=== PATIENT | male | born 1965 | race African-American/Black ===

== ENCOUNTER 2017-04-09 22:29 | Inpatient (IN) | payer BC ==
[~2017-04-09] VITALS: Ht 193 cm; Wt 125.7 kg
[~2017-04-09 22:29] MED LIST: ASPCH81X PO; CARV12.52 PO; LISI20TA3 PO
[2017-04-09] MEDS ORDERED: XYLOCAINE 1%/SOD BICARB 20 ML VIAL INFIL ONE (22:45)
[2017-04-09] MEDS ORDERED: SODIUM CHLORIDE 0.9% 1000ML 1,000 ML IV STA ×2 (22:45)
[2017-04-09] MEDS ORDERED: ACETAMINOPHEN 500 MG TAB PO STA (23:00)
[2017-04-09] MEDS ORDERED: LISI40TA PO (23:08)
[2017-04-09] MEDS ORDERED: AMLO-110 PO (23:08)
[2017-04-09] MEDS ORDERED: HYDR25TA4 PO (23:08)
[2017-04-09 23:50] LABS: BASO % 0.3 %; BASO ABS # 0.04 K/uL (0-0.2); COMPLETE YES; EOS % 0.3 %; HEMATOCRIT 38.4 % (42-52); IG% 0.3 %; LYMPH % 5.9 %; LYMPH ABS # 0.71 K/uL (1.2-3.4); MEAN CELL VOLUME 84.2 fL (80-100); MEAN CORPUSCULAR HEMOGLOBIN 28.5 pg (25-34); MEAN CORPUSCULAR HGB CONC 33.9 g/dl (32-36); MEAN PLATELET VOLUME 9.5 fL (7.4-10.4); MONO % 9.8 %; NEUT % 83.4 %; PLATELET COUNT 332 K/uL (130-400); RED BLOOD COUNT 4.56 M/uL (4.7-6.1); WHITE BLOOD COUNT 11.96 K/uL (4.8-10.8)
[2017-04-10 00:06] LABS: INR 1.1 (0.9-1.1); PARTIAL THROMBOPLASTIN RATIO 1.4; PROTHROMBIN TIME (PATIENT) 12.1 SECONDS (9.0-12.0)
[2017-04-10 00:17] LABS: ALT/SGPT 67 U/L (12-78); BLOOD UREA NITROGEN 19 mg/dl (7-18); BUN/CREATININE RATIO 12.4 (10-20); CARBON DIOXIDE 30 mmol/L (21-32); CHLORIDE 98 mmol/L (98-107); GLUCOSE 141 mg/dl (70-99); POTASSIUM 3.8 mmol/L (3.5-5.1); SODIUM 135 mmol/L (136-145); URIC ACID 8.2 mg/dl (2.6-7.2)
[2017-04-10 00:24] LABS: ALB/GLOB RATIO 0.6 (0.9-2); ALKALINE PHOSPHATASE 121 U/L (45-117); AST/SGOT 39 U/L (15-37)
[2017-04-10 00:34] LABS: LYME DISEASE AB IGM NEG (NEG)
[2017-04-10 00:35] LABS: LYME DISEASE AB IGG NEG (NEG)
[2017-04-10] MEDS ORDERED: CEFTRIAXONE SOD INJ 1000 MG in DEXTROSE 5% 50ML IV ONE (02:15)
[2017-04-10] MEDS ORDERED: VANCOMYCIN INJ 2,800 MG in SODIUM CHLORIDE 0.9% 500ML 500 ML IV ONE (02:15)
[2017-04-10] MEDS ORDERED: CEFTRIAXONE SOD INJ 1 GM ADDVIAL ONE (02:29)
[2017-04-10 03:30] VITALS: BP 138/73; PULSE 80; TEMP 37.1; O2SAT 95; Ht 193 cm; Wt 125.7 kg
[2017-04-10] MEDS ORDERED: NSS + 20MEQ KCL 1000ML 1,000 ML IV ONE (03:30)
[2017-04-10] MEDS ORDERED: POTASSIUM CHLORIDE 10 MEQ TABCR PO STA (03:36)
--- NOTE | 2017-04-10 03:54 | History and Physical ---
History & Physical Date & Time of Service: Apr 10, 2017 at 03:54 Chief Complaint: R knee pain Primary Care Physician: Sarthak Salazar D.O. History of Present Illness Source: patient, clinic records Few days history of achy bilateral lower extremity pain different from gout more pain on the right knee than usual especially with walking. Patient had fever chills no trauma denies previous episodes. No chest pain no shortness of breath. At the emergency room patient received Vanco and ceftriaxone for possible septic arthritis. 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) Multi-Drug Resistant Organisms History of MDRO: No Allergies Coded Allergies: No Known Allergies (Unverified , 04/09/17) Home Medications Scheduled Amlodipine (Norvasc), 5 MG PO DAILY Aspirin (Aspirin Chewable), 81 MG PO QAM Carvedilol (Coreg), 12.5 MG PO BID Hydrochlorothiazide (Hctz), 25 MG PO DAILY Lisinopril (Zestril), 40 MG PO DAILY Review of Systems as per HPI, all other ROS negative Physical Exam Vital Signs Date Time Temp Pulse Resp B/P (MAP) Pulse Ox O2 Delivery O2 Flow Rate FiO2 04/10/17 02:30 82 04/10/17 01:59 82 18 131/67 98 Room Air 04/10/17 00:26 37.5 90 20 151/82 96 Room Air 04/09/17 23:02 98 Room Air 04/09/17 22:38 102 04/09/17 22:33 38.0 103 16 154/83 100 Room Air General Appearance: no apparent distress, + obese, + pertinent finding ( slightly anxious) Eyes: normal inspection ENT: normal ENT inspection Neck: supple, no JVD Respiratory/Chest: lungs clear Cardiovascular: regular rate, rhythm Abdomen/GI: soft Extremities/Musculoskelatal: + pertinent finding (dressing right knee) Skin: normal color Diagnostics Laboratory Results Results Past 24 Hours Test 04/09/17 23:34 04/09/17 23:45 04/09/17 23:49 Range/Units White Blood Count 11.96 4.8-10.8 K/uL Red Blood Count 4.56 4.7-6.1 M/uL Hemoglobin 13.0 14.0-18.0 g/dL Hematocrit 38.4 42-52 % Mean Corpuscular Volume 84.2 80-100 fL Mean Corpuscular Hemoglobin 28.5 25-34 pg Mean Corpuscular Hemoglobin Concent 33.9 32-36 g/dl Platelet Count 332 130-400 K/uL Mean Platelet Volume 9.5 7.4-10.4 fL Neutrophils (%) (Auto) 83.4 % Lymphocytes (%) (Auto) 5.9 % Monocytes (%) (Auto) 9.8 % Eosinophils (%) (Auto) 0.3 % Basophils (%) (Auto) 0.3 % Neutrophils # (Auto) 9.97 1.4-6.5 K/uL Lymphocytes # (Auto) 0.71 1.2-3.4 K/uL Monocytes # (Auto) 1.17 0.11-0.59 K/uL Eosinophils # (Auto) 0.04 0-0.5 K/uL Basophils # (Auto) 0.04 0-0.2 K/uL RDW Standard Deviation 42.8 36.4-46.3 fL RDW Coefficient of Variation 13.8 11.5-14.5 % Immature Granulocyte % (Auto) 0.3 % Immature Granulocyte # (Auto) 0.03 0.00-0.02 K/uL Erythrocyte Sedimentation Rate 87 0-14 mm/hr Prothrombin Time 12.1 9.0-12.0 SECONDS Prothromb Time International Ratio 1.1 0.9-1.1 Activated Partial Thromboplast Time 35.5 21.0-31.0 SECONDS Partial Thromboplastin Ratio 1.4 Sodium Level 135 136-145 mmol/L Potassium Level 3.8 3.5-5.1 mmol/L Chloride Level 98 98-107 mmol/L Carbon Dioxide Level 30 21-32 mmol/L Anion Gap 7.0 3-11 mmol/L Blood Urea Nitrogen 19 7-18 mg/dl Creatinine 1.50 0.60-1.40 mg/dl Est Creatinine Clear Calc Drug Dose 83.4 ml/min Estimated GFR () 61.2 Estimated GFR (Non- 52.8 BUN/Creatinine Ratio 12.4 10-20 Random Glucose 141 70-99 mg/dl Uric Acid 8.2 2.6-7.2 mg/dl Calcium Level 9.4 8.5-10.1 mg/dl Total Bilirubin 1.5 0.2-1 mg/dl Aspartate Amino Transf (AST/SGOT) 39 15-37 U/L Alanine Aminotransferase (ALT/SGPT) 67 12-78 U/L Alkaline Phosphatase 121 45-117 U/L Troponin I < 0.015 0-0.045 ng/ml C-Reactive Protein 25.00 0-0.29 mg/dl Total Protein 7.9 6.4-8.2 gm/dl Albumin 3.0 3.4-5.0 gm/dl Globulin 4.9 2.5-4.0 gm/dl Albumin/Globulin Ratio 0.6 0.9-2 Lyme Disease IgG Antibody NEG NEG Lyme Disease IgM Antibody NEG NEG Bedside Troponin I < 0.030 0-0.045 ng/ml Bedside Lactic Acid Venous 1.02 0.90-1.70 mmol/L Microbiology Results 04/09/17 Blood Culture, Received Pending 04/09/17 Blood Culture, Received Pending 04/10/17 Gram Stain - Preliminary, Resulted 04/10/17 Bacterial Culture, Resulted Pending Diagnostic Radiology Right knee x-ray as per my interpretation arthritis small effusion CXR normal Impression Assessment and Plan AP Septic arthritis, R knee History of past surgery LE pain ro dvt History gout as per patient, no previous knee involevement as per px Chronic systolic heart failure secondary to non-ischemic cardiomyopathy EF 55% TTE 2015 Compensated Hypertension slightly elevated ARF GMF CS, Vancomycin Orthopedics consult right knee pain and swelling ER provider already in touch with Dr. Hoover Baseline UA, Monitor creatinine response to IV fluids Hold COCO inhibitor, home diuretics until creatinine at baseline Lower extremity Dopplers rule out DVT DVT prophylaxis Heparin SQ Full code VTE Prophylaxis VTE Risk Assessment Done? Y/N: Yes Risk Level: Moderate
[2017-04-10] MEDS ORDERED: HYDROmorphone INJ 0.5 MG/0.5 ML SYR IV PRN (04:00)
[2017-04-10] MEDS ORDERED: ONDANSETRON INJ 2 MG/ML 2 ML VIAL IV PRN (04:00)
[2017-04-10] MEDS ORDERED: TRAMADOL HCL 50 MG TAB PO PRN (04:00)
[2017-04-10] MEDS ORDERED: ACETAMINOPHEN 325 MG TAB PO PRN (04:00)
[2017-04-10] MEDS ORDERED: LORAZEPAM 2 MG/ML 1 ML VIAL IV PRN (04:00)
[2017-04-10 04:25] LABS: CALCIUM 9.8 mg/dl (8.5-10.1)
[2017-04-10 04:40] LABS: MAGNESIUM 2.8 mg/dl (1.8-2.4)
--- NOTE | 2017-04-10 04:41 | EMERGENCY ROOM VISIT NOTE ---
History First contact with patient: 22:38 Chief Complaint: OTHER COMPLAINT Stated Complaint: SEPTIC ARTHRITIS History of Present Illness The patient is a 52 year old male who presents to the Emergency Room with complaints of fever with body aches and right knee pain and swelling. Fever started today. Patient states for the past week the knee has been swollen and very painful with ambulation. He has a history of gout but no history in the knee. Hes had tick bites before. Knee pain 8 out of 10 worse with movement and better with rest. Patient denies chest pain, cough, congestion, sore throat , abdominal pain, vomiting, diarrhea, urinary symptoms. He does not check his blood sugars. No IV drug abuse. Review of Systems See HPI for pertinent positives & negatives. A total of 10 systems reviewed and were otherwise negative. Past Medical/Surgical History Medical Problems: (1) Septic arthritis Diabetes, gout, arrhythmia, knee surgery Social History Smoking Status: Never Smoker Alcohol Use: none Drug Use: none Occupation Status: employed Current/Historical Medications Scheduled Amlodipine (Norvasc), 5 MG PO DAILY Aspirin (Aspirin Chewable), 81 MG PO QAM Carvedilol (Coreg), 12.5 MG PO BID Hydrochlorothiazide (Hctz), 25 MG PO DAILY Lisinopril (Zestril), 40 MG PO DAILY Allergies Coded Allergies: No Known Allergies (Unverified , 04/09/17) Physical Exam Vital Signs Date Time Temp Pulse Resp B/P (MAP) Pulse Ox O2 Delivery O2 Flow Rate FiO2 04/10/17 01:59 82 18 131/67 98 Room Air 04/10/17 00:26 37.5 90 20 151/82 96 Room Air 04/09/17 23:02 98 Room Air 04/09/17 22:38 102 04/09/17 22:33 38.0 103 16 154/83 100 Room Air Physical Exam VITALS: Vitals are noted on the nurse's note and reviewed by myself. Vital signs febrile tachycardic. GENERAL: Pleasant male who appears uncomfortable, nondiaphoretic, well- developed well-nourished. SKIN: The skin was without rashes, erythema, edema, or bruising. There is no tenting of the skin. Capillary reflex less than 2 seconds. HEAD: Normocephalic atraumatic. EARS: External auditory canals clear, tympanic membranes pearly clemente without erythema or effusion bilaterally. EYES: Pupils equal round and reactive to light and accommodation. Conjunctivae without injection, sclerae without icterus. Extraocular movements intact. NOSE: Patent, turbinates without inflammation or discharge. No sinus tenderness. MOUTH: Mucous membranes moist. Pharynx without erythema or exudate. Uvula midline. Airway patent. Tongue does not deviate. NECK: Supple without nuchal rigidity. No lymphadenopathy. No thyromegaly. Cervical spine is nontender. No JVD. HEART: Tachycardia, Regular rate and rhythm without murmurs gallops or rubs. LUNGS: Clear to auscultation bilaterally without wheezes, rales or rhonchi. No dullness to percussion. No retractions or accessory muscle use. ABDOMEN: Positive bowel sounds x 4. Normal tympanic percussion. Soft, nontender, without masses or organomegaly. Mallory sign negative. No guarding or rebound tenderness. MUSCULOSKELETAL: No muscle atrophy, erythema, or edema noted. Right knee is edematous and warm to touch with increased pain with range of motion with no lymphangitis. Right hip and ankle nontender to palpation. Pedal pulses +2 equal present bilaterally. NEURO: Patient was alert and oriented to person place and time. Normal sensation to light and sharp touch. No focal neurological deficits. Medical Decision & Procedures Laboratory Results Test 04/09/17 23:34 04/09/17 23:45 04/09/17 23:49 RDW Standard Deviation 42.8 fL (36.4-46.3) RDW Coefficient of Variation 13.8 % (11.5-14.5) White Blood Count 11.96 K/uL (4.8-10.8) Red Blood Count 4.56 M/uL (4.7-6.1) Hemoglobin 13.0 g/dL (14.0-18.0) Hematocrit 38.4 % (42-52) Mean Corpuscular Volume 84.2 fL (80-100) Mean Corpuscular Hemoglobin 28.5 pg (25-34) Mean Corpuscular Hemoglobin Concent 33.9 g/dl (32-36) Platelet Count 332 K/uL (130-400) Mean Platelet Volume 9.5 fL (7.4-10.4) Neutrophils (%) (Auto) 83.4 % Lymphocytes (%) (Auto) 5.9 % Monocytes (%) (Auto) 9.8 % Eosinophils (%) (Auto) 0.3 % Basophils (%) (Auto) 0.3 % Neutrophils # (Auto) 9.97 K/uL (1.4-6.5) Lymphocytes # (Auto) 0.71 K/uL (1.2-3.4) Monocytes # (Auto) 1.17 K/uL (0.11-0.59) Eosinophils # (Auto) 0.04 K/uL (0-0.5) Basophils # (Auto) 0.04 K/uL (0-0.2) Immature Granulocyte % (Auto) 0.3 % Immature Granulocyte # (Auto) 0.03 K/uL (0.00-0.02) Erythrocyte Sedimentation Rate 87 mm/hr (0-14) Prothrombin Time 12.1 SECONDS (9.0-12.0) Prothromb Time International Ratio 1.1 (0.9-1.1) Activated Partial Thromboplast Time 35.5 SECONDS (21.0-31.0) Partial Thromboplastin Ratio 1.4 Est Creatinine Clear Calc Drug Dose 83.4 ml/min Uric Acid 8.2 mg/dl (2.6-7.2) Magnesium Level 2.8 mg/dl (1.8-2.4) Total Creatine Kinase 207 U/L (39-308) Troponin I < 0.015 ng/ml (0-0.045) C-Reactive Protein 25.00 mg/dl (0-0.29) Lyme Disease IgG Antibody NEG (NEG) Lyme Disease IgM Antibody NEG (NEG) Bedside Troponin I < 0.030 ng/ml (0-0.045) Bedside Lactic Acid Venous 1.02 mmol/L (0.90-1.70) Medications Administered Medications (Trade) Dose Ordered Sig/Jesus Route Start Time Stop Time Status Last Admin Dose Admin Sodium Chloride 1,000 ml @ 999 mls/hr Q1H1M STAT IV 04/09/17 22:45 04/09/17 23:45 DC 04/09/17 22:45 999 MLS/HR Sodium Chloride 1,000 ml @ 125 mls/hr Q8H STAT IV 04/09/17 22:45 04/10/17 06:44 04/10/17 01:07 125 MLS/HR Acetaminophen (Tylenol Tab) 1,000 mg NOW STAT PO 04/09/17 23:00 04/09/17 23:02 DC 04/09/17 23:17 1,000 MG Procedure Joint aspiration Indication: Rule out septic joint Location: Knee Verbal consent was obtained after the risks and benefits were explained, including but not limited to bleeding, scarring, infection, pain, and bone/joint /nerve damage. At this time, the risks of the procedure are less than the risks of NOT performing the procedure. A time out was taken and the correct patient and site identified. The skin was prepped with betadine and a sterile field set. The wound was anesthetized with 2 ml of 1% lidocaine without epinephrine. The right knee was entered with a 18-gauge needle superior and lateral and milky thick material was withdrawn that was minimal. I was unable to withdraw any other fluid. This is sent for analysis. There is cleansed and dressed with bandage and Yuan wrap. Detailed wound care instructions and signs and symptoms of worsening infection reviewed with the patient. No complications and the patient tolerated the procedure well. ED Course Prior records/ancillary studies reviewed. Triage Nursing notes reviewed. The patient's history was concerning for fever. Differential diagnosis: Etiologies such as viral syndrome, septic joint, gout, Lyme's, otitis, pharyngitis, pneumonia, influenza, meningitis, urinary tract infection, sepsis, bacteremia, as well as others were entertained. Physical examination: Patient was alert febrile and tachycardic ER treatment provided: Rocephin, vancomycin On reassessment the patient felt better. Diagnostics interpreted by me: ECG: Normal sinus, normal intervals, T wave inversions in the lateral leads, rate of 97. Impression normal sinus rhythm with T-wave inversions in the lateral leads interpreted by myself The labs revealed leukocytosis. Negative lactic acid. Elevated sedimentation rate, elevated ESR Lab was only able to do a Gram stain and did this before asked me what I would like since there is minimal amount of fluid for analysis. This showed very few WBCs and no organisms. Imaging studies: Knee x-ray with joint effusion without fracture per my interpretation Chest x-ray with no acute consolidation, pneumothorax or free air per my interpretation Consultation: A consultation was placed with Dr. Hoover and is unsure exactly if this is gout or anything else and recommends medical admission if my concern is for infection. I then consulted Dr. Glynn and will evaluate the patient for possible admission. The case was discussed and diagnostics were reviewed. The patient was evaluated in the ER for further treatment. Exam and history seem consistent with right knee joint effusion with concerns for gout versus septic joint. I was unable to get enough fluid out of the knee for analysis besides the Gram stain that was done by lab without asking me first of what test to run. Patient does have a leukocytosis and elevated sedimentation rate and CRP earache. He had negative lactic acid. Gram stain showed very few WBCs and no organisms. Uric acid was elevated. I did speak to orthopedics, Dr. Hoover, and is unsure if this is gout or anything else. He recommends medical admission and he will evaluate the person tomorrow for possible joint aspiration and antibiotics. I spoke to medicine, Dr. Thompson and will evaluate the patient for admission. Patient is agreeable to admission. Blood cultures are pending. By the evaluation outlined above emergent etiologies such as otitis, pharyngitis, pneumonia, meningitis, urinary tract infection, sepsis, as well as others were deemed relatively unlikely. The pt informed about the findings as listed above. All questions were answered and pleased with the treatment. Case reviewed with my attending. Medical Decision As above Impression Primary Impression: Effusion, right knee Additional Impressions: Anemia Fever Departure Information Dispostion Still a Patient Condition FAIR Referrals Sarthak Salazar D.O. (PCP) Forms WORK / SCHOOL INSTRUCTIONS, HOME CARE DOCUMENTATION FORM, IMPORTANT VISIT INFORMATION Patient Instructions My [facility] Problem Qualifiers
[2017-04-10] MEDS ORDERED: VANCOMYCIN CONSULT ACTIVE PRN (04:45)
[2017-04-10] MEDS: HEPARIN SOD 5000 UNIT/0.5 ML CARP SQ SCH ×3 (05:13→22:02)
--- NOTE | 2017-04-10 05:37 | Pharmacy Progress Note ---
Pharmacy Abx Initial Consult Date of Service Apr 10, 2017. Pharmacy Dosing Scope Date of Consult: 04/10/17 Consultation requested by: Dr. Thompson Pharmacy is consulted to initiate VANC-IV dosing therapy, order appropriate labs and adjust drug dose/frequency. Subjective The patient is a 52 year old male admitted on Apr 10, 2017 at 02:00. Ordered Vanc-IV for septic arthritis. Cultures pending. Objective Height (Feet): 6 Height (Inches): 4.00 Weight (Kilograms): 125.700 Vital Signs (Past 12Hrs) Vital Signs Past 12 Hours Date Time Temp Pulse Resp B/P (MAP) Pulse Ox O2 Delivery O2 Flow Rate FiO2 04/10/17 03:30 37.1 80 18 138/73 95 Room Air 04/10/17 02:30 82 04/10/17 01:59 82 18 131/67 98 Room Air 04/10/17 00:26 37.5 90 20 151/82 96 Room Air 04/09/17 23:02 98 Room Air 04/09/17 22:38 102 04/09/17 22:33 38.0 103 16 154/83 100 Room Air Lab Results (24Hrs) Laboratory Tests (24 Hours) Test 04/09/17 23:34 04/10/17 05:14 C-Reactive Protein 25.00 mg/dl (0-0.29) H Erythrocyte Sedimentation Rate 87 mm/hr (0-14) H White Blood Count 11.96 K/uL (4.8-10.8) H Red Blood Count 4.56 M/uL (4.7-6.1) L Hemoglobin 13.0 g/dL (14.0-18.0) L Hematocrit 38.4 % (42-52) L Mean Corpuscular Volume 84.2 fL (80-100) Mean Corpuscular Hemoglobin 28.5 pg (25-34) Mean Corpuscular Hemoglobin Concent 33.9 g/dl (32-36) Platelet Count 332 K/uL (130-400) Mean Platelet Volume 9.5 fL (7.4-10.4) Neutrophils (%) (Auto) 83.4 % Lymphocytes (%) (Auto) 5.9 % Monocytes (%) (Auto) 9.8 % Eosinophils (%) (Auto) 0.3 % Basophils (%) (Auto) 0.3 % Neutrophils # (Auto) 9.97 K/uL (1.4-6.5) H Lymphocytes # (Auto) 0.71 K/uL (1.2-3.4) L Monocytes # (Auto) 1.17 K/uL (0.11-0.59) H Eosinophils # (Auto) 0.04 K/uL (0-0.5) Basophils # (Auto) 0.04 K/uL (0-0.2) Total Creatine Kinase 207 U/L (39-308) Micro Results Date/Time Source Procedure Growth Status 04/09/17 23:42 Blood Blood Culture Pending Received 04/09/17 23:34 Blood Blood Culture Pending Received 04/10/17 00:10 Joint Fluid/Space (Synovial) Knee Right Gram Stain - Preliminary Resulted 04/10/17 00:10 Joint Fluid/Space (Synovial) Knee Right Bacterial Culture Pending Resulted Assessment & Plan Plan: Will monitor renal function closely and make adjustments as needed. Vancomycin IV: * Estimated p'kinetics: Vd~0.7L/kg, Ke~0.0733hr-1, t1/2~9.5 hours * Loading dose: VANC 2800mg (22 mg/kg) * Maintenance dose: VANC 1900mg IV (15 mg/kg) every 12 hours * Goal trough level: 15 to 20 mcg/mL * VANC Trough @ Css prior to 04/12/17 0000 dose Pharmacy will continue to follow and will adjust dose/frequency as necessary. Thank you.
[2017-04-10 05:44] LABS: HEMATOCRIT 33.7 % (42-52); MEAN CELL VOLUME 85.3 fL (80-100); MEAN CORPUSCULAR HEMOGLOBIN 28.1 pg (25-34); MEAN CORPUSCULAR HGB CONC 32.9 g/dl (32-36); MEAN PLATELET VOLUME 9.5 fL (7.4-10.4); PLATELET COUNT 286 K/uL (130-400); RED BLOOD COUNT 3.95 M/uL (4.7-6.1); WHITE BLOOD COUNT 10.72 K/uL (4.8-10.8)
[2017-04-10 06:14] LABS: BUN/CREATININE RATIO 15.7 (10-20); CREATININE 1.1 mg/dl (0.60-1.40); POTASSIUM 3.5 mmol/L (3.5-5.1)
[2017-04-10 06:18] LABS: ALB/GLOB RATIO 0.7 (0.9-2)
--- NOTE | 2017-04-10 06:34 | DIAGNOSTIC IMAGING REPORT ---
RIGHT KNEE 3 VIEWS CLINICAL HISTORY: right pain/swelling Right pain COMPARISON: None. DISCUSSION: Moderate generalized degenerative change all major joint compartments. Very small joint effusion. No evidence for fracture or dislocation. IMPRESSION: Generalized degenerative change. Small joint effusion. Electronically signed by: Rubio Maria M.D. 04/10/2017 6:33 AM Dictated Date/Time: 04/10/2017 6:32 AM
--- NOTE | 2017-04-10 06:49 | DIAGNOSTIC IMAGING REPORT ---
CHEST ONE VIEW PORTABLE CLINICAL HISTORY: Sepsis dyspnea COMPARISON STUDY: No previous studies for comparison. FINDINGS: The bones soft tissues and hemidiaphragms are normal. The cardiomediastinal silhouette is normal. The lungs are clear. The pulmonary vasculature is normal. IMPRESSION: Negative chest. Electronically signed by: Rubio Maria M.D. 04/10/2017 6:47 AM Dictated Date/Time: 04/10/2017 6:46 AM
[2017-04-10 06:50] LABS: CALCIUM 9.1 mg/dl (8.5-10.1)
[2017-04-10 07:35] VITALS: BP 102/62; PULSE 72; TEMP 37; O2SAT 96
[2017-04-10] MEDS ORDERED: LISINOPRIL 40 MG TAB PO SCH (08:00)
[2017-04-10] MEDS ORDERED: HYDROCHLOROTHIAZIDE 25 MG TAB PO SCH (08:00)
[2017-04-10] MEDS: AMLODIPINE BESYLATE 5 MG TAB PO SCH (08:34)
[2017-04-10] MEDS: ASPIRIN 81 MG ECTAB PO SCH (08:34)
[2017-04-10] MEDS: CARVEDILOL 12.5 MG TAB PO SCH ×2 (08:34→22:00)
[2017-04-10 08:35] VITALS: BP 105/59; PULSE 74
--- NOTE | 2017-04-10 09:30 | DIAGNOSTIC IMAGING REPORT ---
BILATERAL LOWER EXTREMITY VENOUS DOPPLER HISTORY: leg cramps COMPARISON STUDY: None. FINDINGS: There is normal compressibility, flow, and augmentation within the bilateral lower extremity deep venous systems. IMPRESSION: No DVT within the right or left lower extremity. Electronically signed by: Chad Crooks M.D. 04/10/2017 9:29 AM Dictated Date/Time: 04/10/2017 9:28 AM
[2017-04-10] MEDS: VANCOMYCIN INJ 1,900 MG in SODIUM CHLORIDE 0.9% 500ML 500 ML IV SCH (12:35)
[2017-04-10] MEDS ORDERED: ETHYL CHLORIDE AER SPR 100 ML CAN EXT ONE (13:00)
[2017-04-10 15:05] VITALS: BP 151/78; PULSE 79; TEMP 37; O2SAT 98
--- NOTE | 2017-04-10 16:14 | Medical Consult ---
Consultation Date of Consultation: Apr 10, 2017. Attending Physician: Jason Miller M.D. Reason for Consultation: Painful Right Knee - r/o septic knee History of Present Illness 52-year-old black male who was admitted by medicine service for right knee pain and rule out septic right knee. Patient states that he's been having this pain in his knee for some time now and has gradually worsened he also states that initially a week or so ago he feels that he had injured his ankle somewhat on the right side and felt like it was a sprain. He states that several years ago he had surgery on his quadriceps tendon of the right knee to reattach it to the patella. He was also told that he would likely need to have a knee replacement down the road at some point in time. The patient states that over the last week he began having some nausea and achiness. He developed a fever on the day that he came in. He had not been taking his temperature over the last week but states he felt hot. The pain in his knee continued to worsen and he states that prior to coming into the emergency room he was attempting to get to the restroom I believe, and between his ankle discomfort and his knee he was unable to do so. He was seen in the emergency room at that time an aspiration was performed of the right knee and a small amount of fluid was removed and sent for culture. The patient denies any overt injury of the recent past. Past Medical/Surgical History Medical Problems: (1) Anemia Status: Acute (2) Effusion, right knee Status: Acute (3) Fever Status: Acute H/O Gout, Chronic Systolic Heart Failure, Htn, ARF H/O Quad Tendon Rupture with repair of the right knee Social History Smoking Status: Unknown if Ever Smoked Drug Use: none Occupation Status: employed Allergies Coded Allergies: No Known Allergies (Unverified , 04/09/17) Home Medications Amlodipine (Norvasc), 5 MG PO DAILY Aspirin (Aspirin Chewable), 81 MG PO QAM Carvedilol (Coreg), 12.5 MG PO BID Hydrochlorothiazide (Hctz), 25 MG PO DAILY Lisinopril (Zestril), 40 MG PO DAILY Current Inpatient Medications Current Inpatient Medications Medications (Trade) Dose Ordered Sig/Jesus Route Start Time Stop Time Status Last Admin Dose Admin Potassium Chloride/Sodium Chloride 1,000 ml @ 75 mls/hr [id number] ONCE IV 04/10/17 03:30 04/10/17 16:49 04/10/17 05:04 75 MLS/HR Heparin Sodium (Porcine) (Heparin Sq 5000 Unit/0.5ml) 5,000 unit Q8 SQ 04/10/17 06:00 05/10/17 05:59 04/10/17 13:46 5,000 UNIT Aspirin (Ecotrin Tab) 81 mg QAM PO 04/10/17 08:00 05/10/17 07:59 04/10/17 08:34 81 MG Amlodipine Besylate (Norvasc Tab) 5 mg DAILY PO 04/10/17 08:00 05/10/17 07:59 04/10/17 08:34 5 MG Carvedilol (Coreg Tab) 12.5 mg BID PO 04/10/17 08:00 05/10/17 07:59 04/10/17 08:34 12.5 MG Acetaminophen (Tylenol Tab) 325 mg Q6H PRN PO 04/10/17 04:00 05/10/17 03:59 Ondansetron HCl (Zofran Inj) 4 mg Q4H PRN IV 04/10/17 04:00 05/10/17 03:59 Hydromorphone HCl (Dilaudid Inj) 0.5 mg Q3H PRN IV 04/10/17 04:00 04/24/17 03:59 Lorazepam (Ativan Inj) 0.5 mg Q4 PRN IV 04/10/17 04:00 05/10/17 03:59 Tramadol HCl (Ultram Tab) pain not relie... Q4 PRN PO 04/10/17 04:00 05/10/17 03:59 Vancomycin HCl (Consult) 1 ea UD PRN N/A 04/10/17 04:45 05/10/17 04:44 Vancomycin HCl 1900 mg/Sodium Chloride 538 ml @ 200 mls/hr Q12H IV 04/10/17 12:00 05/22/17 11:59 04/10/17 12:35 200 MLS/HR Review of Systems As per admitting H&P Physical Exam Date Time Temp Pulse Resp B/P (MAP) Pulse Ox O2 Delivery O2 Flow Rate FiO2 04/10/17 15:05 37.0 79 18 151/78 (102) 98 Room Air 04/10/17 08:35 74 105/59 (74) 04/10/17 08:00 Room Air 04/10/17 07:35 37.0 72 18 102/62 (75) 96 Room Air 04/10/17 03:30 37.1 80 18 138/73 95 Room Air 04/10/17 02:30 82 04/10/17 01:59 82 18 131/67 98 Room Air 04/10/17 00:26 37.5 90 20 151/82 96 Room Air 04/09/17 23:02 98 Room Air 04/09/17 22:38 102 04/09/17 22:33 38.0 103 16 154/83 100 Room Air Examination focusing on the right lower extremity. When walking into the room the patient is lying in bed is awake and alert and oriented 3. He appears comfortable at this time. Whenever he moves the right leg somewhat he does have some discomfort. On examining the right knee he has what appears to be a noted effusion of the right knee and upon palpation feels like possible fluctuance around the patella and the superior aspect. The knee is not overtly hot compared to the left. On palpation most of his pain is over the superior pole of the patella and the quadriceps tendon. I cannot ascertain if there is a discrepancy in the tendon. The patient is able to fully extend the knee at this time. Taking the knee through passive range of motion, I can get him to flex the knee and extend the knee flexing to approximately 65 without much in the way of discomfort in the knee joint itself. The patient is currently unable to do a straight leg raise with the right lower extremity. However with some help from myself, the patient is able to do a straight leg raise however is not able to hold a straight leg raise once I stop helping him. During this time he does have pain in the area of the superior pole of the patella but not so much in the knee joint itself. Collateral ligaments feel stable at this time. He does have some mild pain on the both medial and lateral aspect of the knees when trying to ascertain collateral stability. It is noted that he is firing his quadriceps muscles during attempt to do straight leg raise. He has some edema going down the lower extremity to the ankle compared to the left distal pulses are equal bilaterally. Patient states he does have some slight decreased sensation in both his feet which apparently has been something he is used to he does have good dorsiflexion plantar flexion of the right ankle but does have some discomfort in the ankle during range of motion. Palpation of the Achilles tendon elicits no pain. No other gross motor or sensory deficits are noted this time. Laboratory Results Last 24 Hours Test 04/09/17 23:34 04/09/17 23:45 04/09/17 23:49 04/10/17 05:14 White Blood Count 11.96 K/uL 10.72 K/uL Red Blood Count 4.56 M/uL 3.95 M/uL Hemoglobin 13.0 g/dL 11.1 g/dL Hematocrit 38.4 % 33.7 % Mean Corpuscular Volume 84.2 fL 85.3 fL Mean Corpuscular Hemoglobin 28.5 pg 28.1 pg Mean Corpuscular Hemoglobin Concent 33.9 g/dl 32.9 g/dl Platelet Count 332 K/uL 286 K/uL Mean Platelet Volume 9.5 fL 9.5 fL Neutrophils (%) (Auto) 83.4 % Lymphocytes (%) (Auto) 5.9 % Monocytes (%) (Auto) 9.8 % Eosinophils (%) (Auto) 0.3 % Basophils (%) (Auto) 0.3 % Neutrophils # (Auto) 9.97 K/uL Lymphocytes # (Auto) 0.71 K/uL Monocytes # (Auto) 1.17 K/uL Eosinophils # (Auto) 0.04 K/uL Basophils # (Auto) 0.04 K/uL RDW Standard Deviation 42.8 fL 42.8 fL RDW Coefficient of Variation 13.8 % 13.7 % Immature Granulocyte % (Auto) 0.3 % Immature Granulocyte # (Auto) 0.03 K/uL Erythrocyte Sedimentation Rate 87 mm/hr Prothrombin Time 12.1 SECONDS Prothromb Time International Ratio 1.1 Activated Partial Thromboplast Time 35.5 SECONDS Partial Thromboplastin Ratio 1.4 Sodium Level 135 mmol/L 139 mmol/L Potassium Level 3.8 mmol/L 3.5 mmol/L Chloride Level 98 mmol/L 104 mmol/L Carbon Dioxide Level 30 mmol/L 26 mmol/L Anion Gap 7.0 mmol/L 9.0 mmol/L Blood Urea Nitrogen 19 mg/dl 17 mg/dl Creatinine 1.50 mg/dl 1.10 mg/dl Est Creatinine Clear Calc Drug Dose 83.4 ml/min 113.7 ml/min Estimated GFR () 61.2 89.0 Estimated GFR (Non- 52.8 76.8 BUN/Creatinine Ratio 12.4 15.7 Random Glucose 141 mg/dl 124 mg/dl Uric Acid 8.2 mg/dl Calcium Level 9.8 mg/dl 9.1 mg/dl Magnesium Level 2.8 mg/dl Total Bilirubin 1.5 mg/dl 0.9 mg/dl Aspartate Amino Transf (AST/SGOT) 39 U/L 30 U/L Alanine Aminotransferase (ALT/SGPT) 67 U/L 52 U/L Alkaline Phosphatase 121 U/L 90 U/L Total Creatine Kinase 207 U/L Troponin I < 0.015 ng/ml C-Reactive Protein 25.00 mg/dl Total Protein 7.9 gm/dl 6.6 gm/dl Albumin 3.0 gm/dl 2.6 gm/dl Globulin 4.9 gm/dl 4.0 gm/dl Albumin/Globulin Ratio 0.6 0.7 Lyme Disease IgG Antibody NEG Lyme Disease IgM Antibody NEG Bedside Troponin I < 0.030 ng/ml Bedside Lactic Acid Venous 1.02 mmol/L Direct Bilirubin 0.4 mg/dl Hepatitis C Antibody Screen NEG Assessment & Plan Question septic right knee. Question rerupture of quadriceps tendon right knee. Plan - the patient underwent knee aspiration in the emergency room and have which at that time they had retrieved a small amount of whitish fluid. This was sent for culture which is showing no organisms and few white cells seen. With the lack of pain that the patient is having during range of motion of the knee, I am less concerned with a septic joint. White blood count was 11.9 on admission and is now just a little over 10. Sedimentation rate on admission was 87 and CRP was 25. Lymes serology is negative. I have discussed the case with Dr. Feliciano. Plans will be to get an MRI of the right knee. I will also order an aspiration kit to the bedside in case of need of aspiration of the fluctuance that is surrounding the superior pole of patella. Dr. Feliciano I will see the patient later this afternoon for further evaluation area
--- NOTE | 2017-04-10 17:05 | Consultant Recommendations ---
Parts Lister Recommendations Date of Service Apr 10, 2017. [employer] Recommendations Dictating an addendum on Mina Posadas. Mr. foley was examined and has an inability to fully extend or in any case anyway actively extend his right knee he complains very little pain we will await his MRI he has a history of a previous quadriceps tendon disruption is he was aspirated today instructed 40 mL of bright yellow xanthochromic inflammatory type fluid that did not appear to be purulent fluid sent for Gram stain culture and sensitivity crystal analysis cell count this in addition to the MRI findings to guide appropriate treatment signed Ricardo Feliciano M.D.
[2017-04-10 18:23] LABS: SYNOVIAL FLUID APPEARANCE CLOUDY; SYNOVIAL FLUID COLOR YELLOW; SYNOVIAL FLUID MONONUC RELAT 4.5 %; SYNOVIAL FLUID POLYNUC RELAT 95.5 %
[2017-04-10] MEDS ORDERED: GADAVIST IV PRN (21:45)
--- NOTE | 2017-04-10 23:29 | DIAGNOSTIC IMAGING REPORT ---
MRI OF THE RIGHT KNEE AND DISTAL RIGHT THIGH WITH AND WITHOUT CONTRAST CLINICAL HISTORY: Right knee pain. Evaluate for quadriceps tendon rupture. Possible septic arthritis. COMPARISON STUDY: Right knee radiographs April 09, 2017. TECHNIQUE: Utilizing 1.5 Mikayla magnet, multiplanar, multi echo imaging of the distal right thigh and right knee was performed pre and postcontrast administration. Injection of 12.5 cc of Gadavist IV was uneventful. FINDINGS: There is a large right knee joint effusion. Diffuse synovial enhancement is noted. There is a suspected 4 mm joint body within the lateral joint space. This exam was compromised due to difficulty positioning. The anterior and posterior cruciate ligaments are intact. The medial collateral ligament and lateral collateral ligament complex are also intact. There is an oblique tear of the body and posterior horn of the medial meniscus. There is no marrow edema. There is no fracture. There is no suspicious osseous lesion. There is mild to moderate chondrosis within the right knee. The patellar tendon is redundant possibly related to a suspected partial quadriceps tendon tear. There is no tear of the patellar tendon. Signal abnormality within the patellar tendon shown on sagittal proton density sequence is not confirmed on the remainder of the pulsing sequences. This is likely artifactual. There are findings consistent with a previous distal quadriceps tendon repair. Susceptibility artifact is noted. Evaluation is difficult on this exam given artifact. However, there are multiple areas of increased signal intensity within the distal quadriceps which suggest a partial thickness tear, greater within the medial aspect of the distal quadriceps. IMPRESSION: 1. Status post distal quadriceps tendon repair. Evaluation is difficult on this exam given artifact however irregularity and increased signal within the distal quadriceps, more severe medially, suggests a partial-thickness distal quadriceps tear. 2. Large right knee joint effusion with suspected small joint body. 3. Oblique tear of the body and posterior horn of the medial meniscus. 4. Diffuse synovial enhancement, a nonspecific finding which could be correlated with joint fluid analysis. Electronically signed by: Giovanni Win M.D. 04/10/2017 11:28 PM Dictated Date/Time: 04/10/2017 9:58 PM
[2017-04-11] VITALS (9 sets, daily range): BP systolic 156–197; BP diastolic 76–96; PULSE 78–92; TEMP 36.8–37.4; O2SAT 94–99
[2017-04-11] MEDS: HEPARIN SOD 5000 UNIT/0.5 ML CARP SQ SCH ×3 (05:52→21:35)
[2017-04-11 06:30] LABS: BUN/CREATININE RATIO 15.3 (10-20); CALCIUM 8.5 mg/dl (8.5-10.1); CREATININE 0.97 mg/dl (0.60-1.40); POTASSIUM 3.6 mmol/L (3.5-5.1)
[2017-04-11] MEDS: ASPIRIN 81 MG ECTAB PO SCH (08:00)
[2017-04-11] MEDS: CARVEDILOL 12.5 MG TAB PO SCH ×2 (08:02→20:40)
[2017-04-11] MEDS: AMLODIPINE BESYLATE 5 MG TAB PO SCH (08:03)
--- NOTE | 2017-04-11 12:00 | Orthopedic Progress Note ---
Orthopedic Progress Note Date of Service Apr 11, 2017. Subjective Reports: feeling well Additional Notes: No new complaints. Resting comfortably. It is now noted that the first aspiration done in the ER is growing gram positive cocci. Crystal analysis is still pending. Cell count shows 27836 WBC's. Second aspiration showing many wbc's, no organisms. Objective Right knee with effusion. No significant changes. Date Time Temp Pulse Resp B/P (MAP) Pulse Ox O2 Delivery O2 Flow Rate FiO2 04/11/17 08:00 Room Air 04/11/17 07:11 37.4 80 18 161/78 (105) 96 Room Air 04/11/17 00:19 36.9 82 18 161/76 (104) 99 Room Air 04/11/17 00:05 Room Air 04/10/17 16:20 Room Air 04/10/17 15:05 37.0 79 18 151/78 (102) 98 Room Air Assessment & Plan Assessment: r/o septic right knee vs quadriceps tendon tear. Plan: Case discussed with Dr Hoover. MRI reviewed. No obvious detachment of the quad tendon noted. It does look like he has as small tear in the deep portion of the tendon but it appears intact around the patella. With the positive culture result noted. Dr Hoover would like to proceed with an arthroscopic washout of the right knee. This has bee discussed with patient who is in agreement to go ahead with the arthroscopy. Plan for Arthroscopy right knee , irrigation and debridement and likely placement of drains.
[2017-04-11] MEDS: VANCOMYCIN INJ 1,900 MG in SODIUM CHLORIDE 0.9% 500ML 500 ML IV SCH ×3 (12:21)
[2017-04-11] MEDS ORDERED: BACITRACIN 50000 UNIT VIAL ONE (16:02)
[2017-04-11] MEDS ORDERED: FENTANYL CITRATE INJ 50 MCG/1 ML 2 ML VIAL ONE ×2 (16:26→17:02)
[2017-04-11] MEDS ORDERED: MIDAZOLAM HCL 1 MG/ML 2ML VIAL ONE (16:26)
[2017-04-11] MEDS ORDERED: KETAMINE HCL INJ 50 MG/ML 10 ML VIAL ONE (16:27)
[2017-04-11] MEDS ORDERED: DEXAMETHASONE SOD INJ 4 MG/ML VIAL ONE (17:08)
[2017-04-11] MEDS ORDERED: LIDOCAINE HCL 2% 2 ML VIAL (20MG/ML) ONE (17:08)
[2017-04-11] MEDS ORDERED: ONDANSETRON INJ 2 MG/ML 2 ML VIAL ONE (17:08)
[2017-04-11] MEDS ORDERED: PROPOFOL IV EMULSION 10 MG/ML 20 ML VIAL IV ONE (17:08)
[2017-04-11] MEDS ORDERED: GLYCOPYRROLATE INJ 0.2 MG/ML VIAL ONE (17:08)
[2017-04-11] MEDS ORDERED: SODIUM CHLORIDE 0.9% INJ 10 ML VIAL ONE (17:09)
[2017-04-11] MEDS ORDERED: LABETALOL HCL IV 5 MG/ML 20ML IV PRN (17:30)
[2017-04-11] MEDS ORDERED: PROMETHAZINE HCL INJ 12.5 MG in SODIUM CHLORIDE 0.9% 50ML 50 ML IV PRN (17:30)
[2017-04-11] MEDS ORDERED: EpHEDrine SULFATE INJ 50 MG/ML AMP IV PRN (17:30)
[2017-04-11] MEDS ORDERED: ATROPINE SULFATE 0.1 MG/ML 5ML SYR IV PRN (17:30)
[2017-04-11] MEDS ORDERED: FLUMAZENIL 0.1 MG/1 ML 10 ML VIAL IV PRN (17:30)
[2017-04-11] MEDS ORDERED: NALOXONE HCL 0.4 MG/1 ML VIAL/CARP IV PRN (17:30)
[2017-04-11] MEDS ORDERED: ONDANSETRON INJ 2 MG/ML 2 ML VIAL IV PRN (17:30)
[2017-04-11] MEDS ORDERED: HYDROmorphone INJ 1 MG/ML SYR IV PRN (17:30)
--- NOTE | 2017-04-11 18:43 | [facility] Post Operative Brief Note ---
Immediate Operative Summary Operative Date Apr 11, 2017. Pre-Operative Diagnosis Probable septic right knee Post-Operative Diagnosis Probable septic right knee, gout, medial meniscus tear Procedure(s) Performed Right Knee Arthroscopy, partial medial menisectomy, chondroplasty patellar/femoral, removal of loose body, partial synovectomy, debridement of gout crystals Surgeon Dr. Hoover Foreman Or Supervisor And Operator Surgeon(s) none Estimated Blood Loss 5 cc Findings gout ,djd oa , medial meniscal tear Specimens Cultures of right knee fluid sent for STAT gram stain, C & S, anaerobic/aerobic microbes Complication(s) None Disposition Recovery Room / PACU
--- NOTE | 2017-04-11 18:46 | Anesthesiology Progress Note ---
Anesthesia Post Op Note Date & Time Apr 11, 2017 at 18:46 Vital Signs Pain Intensity: 5 Vital Signs Past 12 Hours Date Time Temp Pulse Resp B/P (MAP) Pulse Ox O2 Delivery O2 Flow Rate FiO2 04/11/17 18:35 36.7 76 16 169/89 100 Nasal Cannula 2 04/11/17 18:20 76 16 165/81 100 Nasal Cannula 2 04/11/17 18:10 76 14 170/97 100 Nasal Cannula 2 04/11/17 18:00 75 14 174/94 100 Mask 5 04/11/17 17:50 76 14 179/96 100 Mask 10 04/11/17 17:40 37.3 78 16 157/90 100 Mask 10 04/11/17 16:00 37 74 16 166/79 (108) 97 Room Air 04/11/17 15:12 37.0 78 12 156/79 (104) 97 Room Air 04/11/17 08:00 Room Air 04/11/17 07:11 37.4 80 18 161/78 (105) 96 Room Air Notes Mental Status: alert / awake / arousable, participated in evaluation Pt Amnestic to Procedure: Yes Nausea / Vomiting: adequately controlled Pain: adequately controlled Airway Patency, RR, SpO2: stable & adequate BP & HR: stable & adequate Hydration State: stable & adequate Anesthetic Complications: no major complications apparent
--- NOTE | 2017-04-11 18:56 | [facility] Operative Report ---
Operative Report Operative Date Apr 11, 2017. Pre-Operative Diagnosis Probable septic right knee, gout, osteoarthritis, medial meniscus tear, partial tear quad tendon with quadriceps and patellar tendinopathy. Post-Operative Diagnosis same. Procedure(s) Performed Right knee arthroscopy with irrigation and debridement including partial synovectomy excision multiple gout crystals with partial medial meniscectomy and chondroplasty patellofemoral joint and medial compartment removal loose body 4.5 mm with closure over drains. Patient was taken to the operating best size under general anesthetic. His right knee examined and seen obese upper thigh a large knee effusion no erythema or drainage. Stable Rian exam and collateral ligaments negative pivot shift. No clear evidence of a quad tendon defect. A pneumatic tourniquet was placed about his right upper thigh. Right lower extremity was prepped and draped with ChloraPrep in usual sterile fashion. The leg was elevated but not exsanguinated. The tourniquet was raised to 350 mmHg. Arthroscopy was performed. Inferior medial and inferior lateral arthroscopy portals. The following findings were noted. First we put the scope into the knee and drained the knee of a yellow non-pussy appearing inflammatory appearing joint fluid with some debris in the joint. This was sent for cultures prior to running a scope fluid through. In the suprapatellar pouch there were many gout crystals embedded into the synovium in both gutters and there was a loose body in the medial gutter. There was grade 3 chondromalacia on the mediofemoral condyle with gout crystals embedded into the articular surface there was grade 2 and some grade 3 changes of the tibial plateau with no exposed bone. There was an unstable medial meniscus tear to probing with an undersurface vertical longitudinal tear. The anterior cruciate ligament and PCL were intact but had gout crystals in the synovium and ligamentum mucosum overlying it. There are some gout crystals embedded into the ligaments. There were gout crystals throughout the synovium throughout the knee. The lateral meniscus was intact with some minor inner margin fraying there was some deep fissures in the lateral tibial plateau with some chondromalacia of the lateral tibial plateau with grade 3 osteoarthritis. The femoral condyle had good articular surface. Lateral meniscus was stable to probing. Attention was first taken to the medial compartment and the gout crystals removed from the synovium tissue and the joint surfaces . A chondroplasty was performed to be femoral condyle grade 3 areas and some of the grade 3 areas on the tibial plateau. A 1.5 linear upbiter was used to perform a partial meniscectomy of the unstable meniscus flap of the posterior horn and all debris fragments were treated out with a 4.5 resector blade and a combination of a 4.5 resector blade and a 3.5 incisor blade which was curved was used to contour the meniscus back to a stable margin which was stable to probing. Then I did a systematic debridement of whatever gout deposits could remove the synovium with some partial synovectomy and some debridement of the gout crystals off of the synovium in the subpatellar pouch and both gutters and the loose body which we found the medial gutter which was fixed to the synovium was removed with the resector blade. We did note that the quad tendon was intact from the intra- articular view. We irrigated the knee with 9 L of antibiotic fluid prior to using regular fluid for the final irrigation and then 2 drains were placed and the portal sites were closed with nylon sutures. Sterile dressings were applied the drains were connected to Hemovac. Yuan wrap placed from the foot to the thigh the tourniquet was let down the patient tolerated the procedure well. Surgeon Dr. Hoover Cyber Special Agent Surgeon(s) none Estimated Blood Loss 5 cc Findings Gout, synovitis, unstable medial meniscus tear, osteoarthritis of the knee, possible infection but no clear evidence of infection. Specimens Cultures of right knee fluid sent for STAT gram stain, C & S, anaerobic/aerobic microbes Drains 2 Hemovac Complication(s) None Disposition Recovery Room / PACU Indications Acute pain and dysfunction right knee with possible sepsis and apparent gout. I attest to the content of the Intraoperative Record and any orders documented therein. Any exceptions are noted below.
[2017-04-11] MEDS: INDOMETHACIN 25 MG CAP PO SCH (21:34)
--- NOTE | 2017-04-11 22:50 | Progress Note ---
Medicine Progress Note Date & Time of Visit: Apr 10, 2017 at 14:08 . [facility] Medicine recheck Admitted this morning for right knee pain / effusion. Comfortable. Afebrile. Ortho consulted. MRI ordered- results pending. . Objective Last 8 Hrs Date Time Temp Pulse Resp B/P (MAP) Pulse Ox O2 Delivery O2 Flow Rate FiO2 04/10/17 08:35 74 105/59 (74) 04/10/17 08:00 Room Air 04/10/17 07:35 37.0 72 18 102/62 (75) 96 Room Air Laboratory Results: Last 24 Hours Test 04/09/17 23:34 04/09/17 23:45 04/09/17 23:49 04/10/17 05:14 White Blood Count 11.96 K/uL 10.72 K/uL Red Blood Count 4.56 M/uL 3.95 M/uL Hemoglobin 13.0 g/dL 11.1 g/dL Hematocrit 38.4 % 33.7 % Mean Corpuscular Volume 84.2 fL 85.3 fL Mean Corpuscular Hemoglobin 28.5 pg 28.1 pg Mean Corpuscular Hemoglobin Concent 33.9 g/dl 32.9 g/dl Platelet Count 332 K/uL 286 K/uL Mean Platelet Volume 9.5 fL 9.5 fL Neutrophils (%) (Auto) 83.4 % Lymphocytes (%) (Auto) 5.9 % Monocytes (%) (Auto) 9.8 % Eosinophils (%) (Auto) 0.3 % Basophils (%) (Auto) 0.3 % Neutrophils # (Auto) 9.97 K/uL Lymphocytes # (Auto) 0.71 K/uL Monocytes # (Auto) 1.17 K/uL Eosinophils # (Auto) 0.04 K/uL Basophils # (Auto) 0.04 K/uL RDW Standard Deviation 42.8 fL 42.8 fL RDW Coefficient of Variation 13.8 % 13.7 % Immature Granulocyte % (Auto) 0.3 % Immature Granulocyte # (Auto) 0.03 K/uL Erythrocyte Sedimentation Rate 87 mm/hr Prothrombin Time 12.1 SECONDS Prothromb Time International Ratio 1.1 Activated Partial Thromboplast Time 35.5 SECONDS Partial Thromboplastin Ratio 1.4 Sodium Level 135 mmol/L 139 mmol/L Potassium Level 3.8 mmol/L 3.5 mmol/L Chloride Level 98 mmol/L 104 mmol/L Carbon Dioxide Level 30 mmol/L 26 mmol/L Anion Gap 7.0 mmol/L 9.0 mmol/L Blood Urea Nitrogen 19 mg/dl 17 mg/dl Creatinine 1.50 mg/dl 1.10 mg/dl Est Creatinine Clear Calc Drug Dose 83.4 ml/min 113.7 ml/min Estimated GFR () 61.2 89.0 Estimated GFR (Non- 52.8 76.8 BUN/Creatinine Ratio 12.4 15.7 Random Glucose 141 mg/dl 124 mg/dl Uric Acid 8.2 mg/dl Calcium Level 9.8 mg/dl 9.1 mg/dl Magnesium Level 2.8 mg/dl Total Bilirubin 1.5 mg/dl 0.9 mg/dl Aspartate Amino Transf (AST/SGOT) 39 U/L 30 U/L Alanine Aminotransferase (ALT/SGPT) 67 U/L 52 U/L Alkaline Phosphatase 121 U/L 90 U/L Total Creatine Kinase 207 U/L Troponin I < 0.015 ng/ml C-Reactive Protein 25.00 mg/dl Total Protein 7.9 gm/dl 6.6 gm/dl Albumin 3.0 gm/dl 2.6 gm/dl Globulin 4.9 gm/dl 4.0 gm/dl Albumin/Globulin Ratio 0.6 0.7 Lyme Disease IgG Antibody NEG Lyme Disease IgM Antibody NEG Bedside Troponin I < 0.030 ng/ml Bedside Lactic Acid Venous 1.02 mmol/L Direct Bilirubin 0.4 mg/dl Hepatitis C Antibody Screen NEG Date/Time Source Procedure Growth Status 04/09/17 23:42 Blood Blood Culture Pending Received 04/09/17 23:34 Blood Blood Culture Pending Received 04/10/17 00:10 Joint Fluid/Space (Synovial) Knee Right Gram Stain - Final Resulted 04/10/17 00:10 Joint Fluid/Space (Synovial) Knee Right Bacterial Culture Pending Resulted Assessment & Plan Current Inpatient Medications: Current Inpatient Medications Medications (Trade) Dose Ordered Sig/Jesus Route Start Time Stop Time Status Last Admin Dose Admin Potassium Chloride/Sodium Chloride 1,000 ml @ 75 mls/hr [id number] ONCE IV 04/10/17 03:30 04/10/17 16:49 04/10/17 05:04 75 MLS/HR Heparin Sodium (Porcine) (Heparin Sq 5000 Unit/0.5ml) 5,000 unit Q8 SQ 04/10/17 06:00 05/10/17 05:59 04/10/17 13:46 5,000 UNIT Aspirin (Ecotrin Tab) 81 mg QAM PO 04/10/17 08:00 05/10/17 07:59 04/10/17 08:34 81 MG Amlodipine Besylate (Norvasc Tab) 5 mg DAILY PO 04/10/17 08:00 05/10/17 07:59 04/10/17 08:34 5 MG Carvedilol (Coreg Tab) 12.5 mg BID PO 04/10/17 08:00 05/10/17 07:59 04/10/17 08:34 12.5 MG Acetaminophen (Tylenol Tab) 325 mg Q6H PRN PO 04/10/17 04:00 05/10/17 03:59 Ondansetron HCl (Zofran Inj) 4 mg Q4H PRN IV 04/10/17 04:00 05/10/17 03:59 Hydromorphone HCl (Dilaudid Inj) 0.5 mg Q3H PRN IV 04/10/17 04:00 04/24/17 03:59 Lorazepam (Ativan Inj) 0.5 mg Q4 PRN IV 04/10/17 04:00 05/10/17 03:59 Tramadol HCl (Ultram Tab) pain not relie... Q4 PRN PO 04/10/17 04:00 05/10/17 03:59 Vancomycin HCl (Consult) 1 ea UD PRN N/A 04/10/17 04:45 05/10/17 04:44 Vancomycin HCl 1900 mg/Sodium Chloride 538 ml @ 200 mls/hr Q12H IV 04/10/17 12:00 05/22/17 11:59 04/10/17 12:35 200 MLS/HR
--- NOTE | 2017-04-11 22:50 | Progress Note ---
Medicine Progress Note Date & Time of Visit: Apr 11, 2017 at 09:10 . Subjective No fever. Persistent pain and swelling of -l-e-f-t- -k-n-e-e- right knee. [corrected @ 01:08 LILIANA] No nausea, vomiting, diarrhea. No chest pain. No cough or shortness of breath. . Objective Last 8 Hrs Date Time Temp Pulse Resp B/P (MAP) Pulse Ox O2 Delivery O2 Flow Rate FiO2 04/11/17 07:11 37.4 80 18 161/78 (105) 96 Room Air Physical Exam: General- no distress Lungs- clear Heart- regular, no gallop Abdomen- bowel sounds, soft, nontender Extremities- Tenderness; large effusion left knee, no no associated erythema or warmth Neuro- alert . Laboratory Results: Last 24 Hours Test 04/10/17 17:05 04/11/17 05:13 Synovial Fluid Source KNEE Synovial Fluid Color YELLOW Synovial Fluid Appearance CLOUDY Synovial Fluid WBC 46009 /uL Synovial Fluid RBC 3000 /uL Synovial Fluid Polynuclear WBCs % 95.5 % Synovial Fluid Mononuclear WBCs % 4.5 % Sodium Level 139 mmol/L Potassium Level 3.6 mmol/L Chloride Level 105 mmol/L Carbon Dioxide Level 26 mmol/L Anion Gap 8.0 mmol/L Blood Urea Nitrogen 15 mg/dl Creatinine 0.97 mg/dl Est Creatinine Clear Calc Drug Dose 128.9 ml/min Estimated GFR () 103.6 Estimated GFR (Non- 89.4 BUN/Creatinine Ratio 15.3 Random Glucose 102 mg/dl Calcium Level 8.5 mg/dl Date/Time Source Procedure Growth Status 04/10/17 17:05 Joint Fluid/Space (Synovial) Knee Right Gram Stain - Final Resulted 04/10/17 17:05 Joint Fluid/Space (Synovial) Knee Right Bacterial Culture - Preliminary NO GROWTH TO DATE. Resulted Assessment & Plan -L-E-F-T- -K-N-E-E- -P-A-I-N- -A-N-D- -O-V-B-L-L-I-N-G- RIGHT KNEE PAIN AND SWELLING [corrected 04/13/17 @ 01:08 LILIANA] Plain films demonstrated degenerative changes, small joint effusion. Arthrocentesis performed in ED, only small amount of fluid obtained. Gram stain showed a few WBCs, no organisms. Orthopedics consulted. Inflammatory arthritis, infectious arthritis, possible rerupture of quadriceps tendon considered. Aspiration of knee performed by Orthopedics; results pending. MRI ordered. NONISCHEMIC CARDIOMYOPATHY Compensated. Continue carvedilol, lisinopril, hydrochlorothiazide. HYPERTENSION Continue carvedilol, amlodipine, lisinopril, hydrochlorothiazide. VTE PROPHYLAXIS SQ heparin. Ambulate as able. DISPOSITION Expected discharge to home. Primary Care follow-up with Dr. Salazar. . Current Inpatient Medications: Current Inpatient Medications Medications (Trade) Dose Ordered Sig/Jesus Route Start Time Stop Time Status Last Admin Dose Admin Heparin Sodium (Porcine) (Heparin Sq 5000 Unit/0.5ml) 5,000 unit Q8 SQ 04/10/17 06:00 05/10/17 05:59 04/10/17 22:02 5,000 UNIT Aspirin (Ecotrin Tab) 81 mg QAM PO 04/10/17 08:00 05/10/17 07:59 04/10/17 08:34 81 MG Amlodipine Besylate (Norvasc Tab) 5 mg DAILY PO 04/10/17 08:00 05/10/17 07:59 04/11/17 08:03 5 MG Carvedilol (Coreg Tab) 12.5 mg BID PO 04/10/17 08:00 05/10/17 07:59 04/11/17 08:02 12.5 MG Acetaminophen (Tylenol Tab) 325 mg Q6H PRN PO 04/10/17 04:00 05/10/17 03:59 Ondansetron HCl (Zofran Inj) 4 mg Q4H PRN IV 04/10/17 04:00 05/10/17 03:59 Hydromorphone HCl (Dilaudid Inj) 0.5 mg Q3H PRN IV 04/10/17 04:00 04/24/17 03:59 Lorazepam (Ativan Inj) 0.5 mg Q4 PRN IV 04/10/17 04:00 05/10/17 03:59 Tramadol HCl (Ultram Tab) pain not relie... Q4 PRN PO 04/10/17 04:00 05/10/17 03:59 Vancomycin HCl (Consult) 1 ea UD PRN N/A 04/10/17 04:45 05/10/17 04:44 Vancomycin HCl 1900 mg/Sodium Chloride 538 ml @ 200 mls/hr Q12H IV 04/10/17 12:00 05/22/17 11:59 04/11/17 00:00 200 MLS/HR Gadobutrol (Gadavist) 12.5 mmol UD PRN IV 04/10/17 21:45 04/14/17 21:44
[2017-04-11] MEDS ORDERED: VANCOMYCIN TROUGH ONE (23:30)
[2017-04-11] MEDS ORDERED: LISINOPRIL 5 MG TAB PO ONE (23:51)
[2017-04-12] MEDS: VANCOMYCIN INJ 1,900 MG in SODIUM CHLORIDE 0.9% 500ML 500 ML IV SCH ×2 (00:48→11:45)
[2017-04-12 03:10] VITALS: BP 148/84; PULSE 78; TEMP 36.7; O2SAT 95
[2017-04-12] MEDS: HEPARIN SOD 5000 UNIT/0.5 ML CARP SQ SCH ×3 (05:54→21:20)
[2017-04-12 06:32] LABS: HEMATOCRIT 34.9 % (42-52); MEAN CELL VOLUME 83.7 fL (80-100); MEAN CORPUSCULAR HEMOGLOBIN 26.6 pg (25-34); MEAN CORPUSCULAR HGB CONC 31.8 g/dl (32-36); MEAN PLATELET VOLUME 9.4 fL (7.4-10.4); PLATELET COUNT 411 K/uL (130-400); RED BLOOD COUNT 4.17 M/uL (4.7-6.1); WHITE BLOOD COUNT 8.81 K/uL (4.8-10.8)
[2017-04-12 07:14] LABS: BUN/CREATININE RATIO 16.2 (10-20); CALCIUM 8.9 mg/dl (8.5-10.1); CREATININE 0.87 mg/dl (0.60-1.40); POTASSIUM 4.3 mmol/L (3.5-5.1)
[2017-04-12 07:31] VITALS: BP 147/80; PULSE 78; TEMP 36.7; O2SAT 96
[2017-04-12] MEDS: ASPIRIN 81 MG ECTAB PO SCH (08:36)
[2017-04-12] MEDS: INDOMETHACIN 25 MG CAP PO SCH ×3 (08:36→21:20)
[2017-04-12] MEDS: AMLODIPINE BESYLATE 5 MG TAB PO SCH (08:37)
[2017-04-12] MEDS: CARVEDILOL 12.5 MG TAB PO SCH ×2 (08:37→21:20)
[2017-04-12] MEDS: LISINOPRIL 5 MG TAB PO SCH (08:38)
--- NOTE | 2017-04-12 10:06 | Orthopedic Progress Note ---
Orthopedic Progress Note Date of Service Apr 12, 2017. Subjective Post OP Day: 1 Reports: feeling well, Denies: complaints Additional Notes: Pain controlled at present with the knee. States his right ankle is feeling better as well. No new complaints. Objective calves soft nontender, N/V intact, dressing C/D/I, A&O x3, hemovac drainage ( 50ml latest shift) Date Time Temp Pulse Resp B/P (MAP) Pulse Ox O2 Delivery O2 Flow Rate FiO2 04/12/17 08:03 Room Air 04/12/17 07:31 36.7 78 19 147/80 (102) 96 Room Air 04/12/17 03:10 36.7 78 16 148/84 (105) 95 Room Air 04/12/17 00:51 Room Air 04/11/17 22:48 163/84 (110) 04/11/17 22:48 37.0 85 16 165/89 (114) 96 Room Air 04/11/17 21:48 37.1 88 16 166/87 (113) 96 Room Air 04/11/17 21:02 36.9 92 16 169/81 (110) 94 Room Air 04/11/17 20:00 Room Air 04/11/17 19:50 36.8 83 16 197/95 (129) 97 Room Air 04/11/17 19:25 36.9 80 16 184/95 (124) 96 Room Air 04/11/17 18:54 37.0 85 16 167/96 (119) 94 Room Air 04/11/17 18:50 Room Air 04/11/17 18:50 Room Air 04/11/17 18:35 36.7 76 16 169/89 100 Nasal Cannula 2 04/11/17 18:20 76 16 165/81 100 Nasal Cannula 2 04/11/17 18:10 76 14 170/97 100 Nasal Cannula 2 04/11/17 18:00 75 14 174/94 100 Mask 5 04/11/17 17:50 76 14 179/96 100 Mask 10 04/11/17 17:40 37.3 78 16 157/90 100 Mask 10 04/11/17 16:00 37 74 16 166/79 (108) 97 Room Air 04/11/17 15:12 37.0 78 12 156/79 (104) 97 Room Air Laboratory Results 24 Hours: Test 04/12/17 05:40 Hematocrit 34.9 % Hemoglobin 11.1 g/dL Additional Notes: RUN DATE: 04/12/17 [facility] LAB PAGE 1 RUN TIME: 811 Specimen Inquiry PATIENT: BIGG COLE LOC: MichealEnrique U # : [id number] AGE/SX: 52/M ROOM: [facility] [place] REG : 04/10/[address]: Jason Miller M.D. : 1965 BED: 1 DIS : STATUS: ADM IN TLOC: CX #1 - ASPIRATE FROM ER SPEC #: [id number] HARRIS: 04/10/17-9 STATUS: RES REQ #: [id number] RECD: 04/10/17-[address]: Tamika Pino PA-C SOURCE: JOINT FLSP ENTR: 04/10/17-[address]: Jason Taylor MD SPDESC: KNEE RIGHT Sarthak Salazar D.O. ORDERED: AER/TRIPP CULTSMEdison COMMENTS: Specimen Comment specimen walked to lab via RN Has Specimen Been Obtained/Collected? Y Procedure Result Verified Site GRAM STAIN Final 04/10/17-714 RESULT FEW WBCs SEEN NO ORGANISMS SEEN OR AER/TRIPP CULT Preliminary 04/12/17-811 Organism 1 COAG NEG STAPHYLOCOCCUS QUANITY RARE SENS SENSITIVITY TO FOLLOW CX #2 - ASPIRATE DONE AT BEDSIDE @ 1705 04/10/17 RUN DATE: 04/12/17 [facility] LAB PAGE 1 RUN TIME: 851 Specimen Inquiry PATIENT: BIGG COLE [facility] [id number] AGE/SX: 52/M ROOM: [facility] REG : 04/10/[address]: Jason Miller M.D. : 1965 BED: 1 DIS : STATUS: ADM IN TLOC: SPEC #: [id number] HARRIS: 04/10/17 STATUS: RES REQ #: [id number] RECD: 04/10/[address]: Randy Rubio PRobertARobert SOURCE: JOINT FLSP ENTR: 04/10/[address] [facility] [address]: Jason Miller M.D. SPDESC: KNEE RIGHT Michael Thompson M.D. [place]usky, Edwin, M.D. [place]usko, Christopher D.O. ORDERED: AER/TRIPP CULTSMR COMMENTS: Specimen Comment this is a repeat aspiration of the right knee Has Specimen Been Obtained/Collected? Y Procedure Result Verified Site GRAM STAIN Final 04/11/17 RESULT MANY POLYS NO ORGANISMS SEEN OR AER/TRIPP CULT Preliminary 04/12/17 NO GROWTH TO DATE. CX #3 - INTRA OPERATIVE RUN DATE: 04/11/17 [facility] LAB PAGE 1 RUN TIME: 1804 Specimen Inquiry PATIENT: BIGG COLE LOC: [place] U # : [id number] AGE/SX: 52/M ROOM: [facility] [place] REG : 04/10/[address]: Jason Miller M.D. : 1965 BED: 1 DIS : STATUS: ADM IN TLOC: SPEC #: [id number] HARRIS: 04/11/17 STATUS: RES REQ #: [id number] RECD: 04/11/[address]: Jason Miller M.D. SOURCE: JOINT FLSP ENTR: 04/11/[address] [facility] [address]: Michael Thompson M.D. [facility]: KNEE RIGHT Joey Hoover M.D. [place], Christopher D.O. ORDERED: AER/TRIPP CULTSMR Procedure Result Verified Site GRAM STAIN Final 04/11/17-1803 RESULT MANY WBCs SEEN NO ORGANISMS SEEN MOSTLY PMNs OR AER/TRIPP CULT Assessment & Plan Assessment: POD 1 s/p Right knee arthroscopy; Probable septic right knee, gout, osteoarthritis, medial meniscus tear, partial tear quad tendon with quadriceps and patellar tendinopathy. Plan: Discussed operative case with Dr Hoover. No obvious purulent fluid noted during arthroscopy. Appeared to be inflammatory in nature. Question first aspirate contaminated?? However with one positive culture, will continue IV antibx and also treat for Gout with noted crystal analysis. On Vancomycin. Indocin started yesterday. Follow cultures. Plan for dressing change and drain removal tomorrow. With weakened quad muscles, plan for use of the immobilizer with ambulation, WBAT. PT/OT Inhouse Planning Pain Management: Ultram, Dilaudid, PO Tylenol DVT Prophylaxis: TEDs, SCDs, ASA
[2017-04-12] MEDS ORDERED: PANTOprazole SOD 40 MG TAB PO ONE (11:00)
--- NOTE | 2017-04-12 12:30 | Pharmacy Progress Note ---
Pharmacy Abx Dose Progress Nt Date of Service Apr 12, 2017. Pharmacy Dosing Scope The patient is currently receiving the following antimicrobial agents per Pharmacy consult:IV Vanco Objective Height (Feet): 6 Height (Inches): 4.00 Weight (Kilograms): 125.700 Vital Signs (Past 12Hrs) Vital Signs Past 12 Hours Date Time Temp Pulse Resp B/P (MAP) Pulse Ox O2 Delivery O2 Flow Rate FiO2 04/12/17 08:03 Room Air 04/12/17 07:31 36.7 78 19 147/80 (102) 96 Room Air 04/12/17 03:10 36.7 78 16 148/84 (105) 95 Room Air 04/12/17 00:51 Room Air Lab Results (24Hrs) Laboratory Tests (24 Hours) Test 04/12/17 05:40 White Blood Count 8.81 K/uL (4.8-10.8) Micro Results Date/Time Source Procedure Growth Status 04/09/17 23:42 Blood Blood Culture - Preliminary NO GROWTH TO DATE. Resulted 04/09/17 23:34 Blood Blood Culture - Preliminary NO GROWTH TO DATE. Resulted 04/11/17 16:50 Joint Fluid/Space (Synovial) Knee Right Gram Stain - Final Resulted 04/11/17 16:50 Joint Fluid/Space (Synovial) Knee Right Bacterial Culture Pending Resulted 04/10/17 17:05 Joint Fluid/Space (Synovial) Knee Right Gram Stain - Final Resulted 04/10/17 17:05 Joint Fluid/Space (Synovial) Knee Right Bacterial Culture - Preliminary NO GROWTH TO DATE. 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 Repeat Joint fluid is pending. Last nights trough lvl (true Css) was slightly subtherapeutic, 14.3mcg/mL. I have increased the dose from 1900mg q12 - -> 2000mg(16mg/kg) q12. I feel a larger increase isn't warranted at this time: WBC are trending down and he appears to be improving per Ortho notes. Further, his BMI is indicative of Vanco accumulation. Trough ordered for 04/14 @ 1130. Prior to the 4th MD to ensure he is therapeutic. Goal trough for bone/joint infxn 15-20 mcg/mL. Renal fxn looks good, slight increase over night. Pharmacy will continue to follow and will adjust dose/frequency as necessary. Thank you.
[2017-04-12 14:54] VITALS: BP 132/73; PULSE 80; TEMP 36.7; O2SAT 97
--- NOTE | 2017-04-12 16:57 | Medical Consult ---
Consultation Date of Consultation: Apr 12, 2017. Attending Physician: Jason Miller M.D. Reason for Consultation: Possible septic arthritis History of Present Illness 52-year-old male with history of prior gouty flares, also with history of right knee injury with previous arthroscopy with tendon repair, who presents with several days of increasing pain and swelling of right knee associated with bilateral joint pains and fever. Patient was seen by Orthopedic surgery, and has now undergone arthroscopic surgery with debridement, with finding inflammatory arthropathy with joint fluid positive for gout crystals. Patient was started empirically on indomethacin and daptomycin, and 1/3 joint fluid cultures are growing coagulase negative Staph. Sensitivities are pending. Patient notices improvement in joint pain, now rated 1/10 intensity. He has been tolerating antibiotics without apparent difficulty. He denies any other systemic complaints. No significant travel history or exposure otherwise. Past Medical/Surgical History Medical Problems: (1) Anemia Status: Acute (2) Effusion, right knee Status: Acute (3) Fever Status: Acute Medical Problems: (1) Infection of left knee (2) Right Quadriceps Tendon Tear (3) Septic arthritis Family History FH: heart disease Social History Smoking Status: Unknown if Ever Smoked Drug Use: none Occupation Status: employed Allergies Coded Allergies: No Known Allergies (Unverified , 04/09/17) Current Inpatient Medications Current Inpatient Medications Medications (Trade) Dose Ordered Sig/Jesus Route Start Time Stop Time Status Last Admin Dose Admin Heparin Sodium (Porcine) (Heparin Sq 5000 Unit/0.5ml) 5,000 unit Q8 SQ 04/10/17 06:00 05/10/17 05:59 04/12/17 13:42 5,000 UNIT Aspirin (Ecotrin Tab) 81 mg QAM PO 04/10/17 08:00 05/10/17 07:59 04/12/17 08:36 81 MG Amlodipine Besylate (Norvasc Tab) 5 mg DAILY PO 04/10/17 08:00 05/10/17 07:59 04/12/17 08:37 5 MG Carvedilol (Coreg Tab) 12.5 mg BID PO 04/10/17 08:00 05/10/17 07:59 04/12/17 08:37 12.5 MG Acetaminophen (Tylenol Tab) 325 mg Q6H PRN PO 04/10/17 04:00 05/10/17 03:59 Ondansetron HCl (Zofran Inj) 4 mg Q4H PRN IV 04/10/17 04:00 05/10/17 03:59 Hydromorphone HCl (Dilaudid Inj) 0.5 mg Q3H PRN IV 04/10/17 04:00 04/24/17 03:59 Lorazepam (Ativan Inj) 0.5 mg Q4 PRN IV 04/10/17 04:00 05/10/17 03:59 Tramadol HCl (Ultram Tab) pain not relie... Q4 PRN PO 04/10/17 04:00 05/10/17 03:59 04/11/17 20:41 50 MG Vancomycin HCl (Consult) 1 ea UD PRN N/A 04/10/17 04:45 05/10/17 04:44 Gadobutrol (Gadavist) 12.5 mmol UD PRN IV 04/10/17 21:45 04/14/17 21:44 Indomethacin (Indocin Cap) 25 mg TID PO 04/11/17 20:00 05/11/17 19:59 04/12/17 13:40 25 MG Lisinopril (Zestril Tab) 5 mg QAM PO 04/12/17 09:00 05/12/17 08:59 04/12/17 08:38 5 MG Pantoprazole Sodium (Protonix Tab) 40 mg QAM PO 04/13/17 09:00 05/13/17 08:59 Vancomycin HCl 2000 mg/Sodium Chloride 540 ml @ 200 mls/hr Q12@0000,1200 IV 04/13/17 00:00 05/25/17 00:00 Review of Systems All systems were reviewed and are negative except as per HPI Physical Exam Date Time Temp Pulse Resp B/P (MAP) Pulse Ox O2 Delivery O2 Flow Rate FiO2 04/12/17 14:54 36.7 80 16 132/73 (92) 97 Room Air 04/12/17 08:03 Room Air 04/12/17 07:31 36.7 78 19 147/80 (102) 96 Room Air 04/12/17 03:10 36.7 78 16 148/84 (105) 95 Room Air 04/12/17 00:51 Room Air 04/11/17 22:48 163/84 (110) 04/11/17 22:48 37.0 85 16 165/89 (114) 96 Room Air 04/11/17 21:48 37.1 88 16 166/87 (113) 96 Room Air 04/11/17 21:02 36.9 92 16 169/81 (110) 94 Room Air 04/11/17 20:00 Room Air 04/11/17 19:50 36.8 83 16 197/95 (129) 97 Room Air 04/11/17 19:25 36.9 80 16 184/95 (124) 96 Room Air 04/11/17 18:54 37.0 85 16 167/96 (119) 94 Room Air 04/11/17 18:50 Room Air 04/11/17 18:50 Room Air 04/11/17 18:35 36.7 76 16 169/89 100 Nasal Cannula 2 04/11/17 18:20 76 16 165/81 100 Nasal Cannula 2 04/11/17 18:10 76 14 170/97 100 Nasal Cannula 2 04/11/17 18:00 75 14 174/94 100 Mask 5 04/11/17 17:50 76 14 179/96 100 Mask 10 04/11/17 17:40 37.3 78 16 157/90 100 Mask 10 General Appearance: WD/WN, no apparent distress Head: normocephalic, atraumatic Eyes: normal inspection, EOMI, sclerae normal ENT: normal ENT inspection, hearing grossly normal, pharynx normal Neck: supple, no adenopathy, thyroid normal, trachea midline Respiratory/Chest: chest non-tender, lungs clear, normal breath sounds, no respiratory distress Cardiovascular: regular rate, rhythm, no gallop, no murmur Abdomen/GI: normal bowel sounds, non tender, soft, no organomegaly Back: normal inspection, no CVA tenderness Extremities/Musculoskelatal: no calf tenderness, normal capillary refill Neurologic/Psych: alert, normal mood/affect, oriented x 3 Skin: normal color, no rash, + pertinent finding ( surgical dressing intact right knee) Laboratory Results RUN DATE: 04/12/17 [facility] LAB PAGE 1 RUN TIME: 1142 Specimen Inquiry PATIENT: BIGG COLE LOC: [place] U # : [id number] AGE/SX: 52/M ROOM: [facility] REG : 04/10/[address]: Jason Miller M.D. : 1965 BED: 1 DIS : STATUS: ADM IN TLOC: SPEC #: [id number] HARRIS: 04/10/17 STATUS: RES REQ #: [id number] RECD: 04/10/[address]: Tamika Pino PA-C SOURCE: JOINT FLSP ENTR: 04/10/[address]: Jason [facility] KNEE RIGHT Sarthak Salazar D.O. ORDERED: AER/TRIPP CULTSMR COMMENTS: Specimen Comment specimen walked to lab via RN Has Specimen Been Obtained/Collected? Y Procedure Result Verified Site GRAM STAIN Final 04/10/17-714 RESULT FEW WBCs SEEN NO ORGANISMS SEEN OR AER/TRIPP CULT Preliminary 04/12/17-1142 Organism 1 COAG NEG STAPHYLOCOCCUS QUANITY RARE SENS SENSITIVITY TO FOLLOW Last 24 Hours Test 04/11/17 23:31 04/12/17 05:40 Vancomycin Level Trough 14.3 mcg/ml White Blood Count 8.81 K/uL Red Blood Count 4.17 M/uL Hemoglobin 11.1 g/dL Hematocrit 34.9 % Mean Corpuscular Volume 83.7 fL Mean Corpuscular Hemoglobin 26.6 pg Mean Corpuscular Hemoglobin Concent 31.8 g/dl RDW Standard Deviation 41.7 fL RDW Coefficient of Variation 13.6 % Platelet Count 411 K/uL Mean Platelet Volume 9.4 fL Sodium Level 137 mmol/L Potassium Level 4.3 mmol/L Chloride Level 105 mmol/L Carbon Dioxide Level 24 mmol/L Anion Gap 8.0 mmol/L Blood Urea Nitrogen 14 mg/dl Creatinine 0.87 mg/dl Est Creatinine Clear Calc Drug Dose 143.8 ml/min Estimated GFR () 115.0 Estimated GFR (Non- 99.2 BUN/Creatinine Ratio 16.2 Random Glucose 139 mg/dl Calcium Level 8.9 mg/dl MRI OF THE RIGHT KNEE AND DISTAL RIGHT THIGH WITH AND WITHOUT CONTRAST CLINICAL HISTORY: Right knee pain. Evaluate for quadriceps tendon rupture. Possible septic arthritis. COMPARISON STUDY: Right knee radiographs April 09, 2017. TECHNIQUE: Utilizing 1.5 Mikayla magnet, multiplanar, multi echo imaging of the distal right thigh and right knee was performed pre and postcontrast administration. Injection of 12.5 cc of Gadavist IV was uneventful. FINDINGS: There is a large right knee joint effusion. Diffuse synovial enhancement is noted. There is a suspected 4 mm joint body within the lateral joint space. This exam was compromised due to difficulty positioning. The anterior and posterior cruciate ligaments are intact. The medial collateral ligament and lateral collateral ligament complex are also intact. There is an oblique tear of the body and posterior horn of the medial meniscus. There is no marrow edema. There is no fracture. There is no suspicious osseous lesion. There is mild to moderate chondrosis within the right knee. The patellar tendon is redundant possibly related to a suspected partial quadriceps tendon tear. There is no tear of the patellar tendon. Signal abnormality within the patellar tendon shown on sagittal proton density sequence is not confirmed on the remainder of the pulsing sequences. This is likely artifactual. There are findings consistent with a previous distal quadriceps tendon repair. Susceptibility artifact is noted. Evaluation is difficult on this exam given artifact. However, there are multiple areas of increased signal intensity within the distal quadriceps which suggest a partial thickness tear, greater within the medial aspect of the distal quadriceps. IMPRESSION: 1. Status post distal quadriceps tendon repair. Evaluation is difficult on this exam given artifact however irregularity and increased signal within the distal quadriceps, more severe medially, suggests a partial-thickness distal quadriceps tear. 2. Large right knee joint effusion with suspected small joint body. 3. Oblique tear of the body and posterior horn of the medial meniscus. 4. Diffuse synovial enhancement, a nonspecific finding which could be correlated with joint fluid analysis. Electronically signed by: Giovanni Win M.D. 04/10/2017 11:28 PM Dictated Date/Time: 04/10/2017 9:58 PM Assessment & Plan 50-year-old male with history of prior gouty episodes, now presents with acute onset of severe right knee pain and swelling, diffuse arthralgias, now status post arthroscopy with finding of gout crystals on pathologic examination. 1/3 cultures now growing coagulase negative Staph given clinical picture, contaminated specimen seems most likely, and the patient appears to be improving with gout therapy. I would continue antibiotics pending final culture results, and continue anti-inflammatories for gout. Hopefully, patient will not require prolonged IV antibiotic therapy. Will discuss with all involved.
[2017-04-12 18:32] LABS: LYME DNA PCR CSF OR SYNOVIAL Not detected (Not Detected); LYME DNA SOURCE Synovial Fluid
--- NOTE | 2017-04-12 22:48 | Progress Note ---
Medicine Progress Note Date & Time of Visit: Apr 12, 2017 at 10:50 . Subjective No fever. No chest pain. No cough or SOB. No nausea, vomiting, diarrhea. Right knee pain improved. . Objective Last 8 Hrs Date Time Temp Pulse Resp B/P (MAP) Pulse Ox O2 Delivery O2 Flow Rate FiO2 04/12/17 15:45 Room Air 04/12/17 14:54 36.7 80 16 132/73 (92) 97 Room Air Physical Exam: General- no distress Neck- no JVD Lungs- clear Heart- regular, no gallop Abdomen- bowel sounds, soft, nontender Extremities- right knee immobilizer applied; no pretibial edema or calf tenderness Neuro- alert . Laboratory Results: Last 24 Hours Test 04/11/17 23:31 04/12/17 05:40 Vancomycin Level Trough 14.3 mcg/ml White Blood Count 8.81 K/uL Red Blood Count 4.17 M/uL Hemoglobin 11.1 g/dL Hematocrit 34.9 % Mean Corpuscular Volume 83.7 fL Mean Corpuscular Hemoglobin 26.6 pg Mean Corpuscular Hemoglobin Concent 31.8 g/dl RDW Standard Deviation 41.7 fL RDW Coefficient of Variation 13.6 % Platelet Count 411 K/uL Mean Platelet Volume 9.4 fL Sodium Level 137 mmol/L Potassium Level 4.3 mmol/L Chloride Level 105 mmol/L Carbon Dioxide Level 24 mmol/L Anion Gap 8.0 mmol/L Blood Urea Nitrogen 14 mg/dl Creatinine 0.87 mg/dl Est Creatinine Clear Calc Drug Dose 143.8 ml/min Estimated GFR () 115.0 Estimated GFR (Non- 99.2 BUN/Creatinine Ratio 16.2 Random Glucose 139 mg/dl Calcium Level 8.9 mg/dl Assessment & Plan RIGHT KNEE PAIN AND SWELLING Plain films demonstrated degenerative changes, small joint effusion. Arthrocentesis performed in ED, only small amount of fluid obtained. Gram stain showed a few WBCs, no organisms. Orthopedics consulted. Inflammatory arthritis, infectious arthritis, possible rerupture of quadriceps tendon considered. Aspiration of knee performed by Orthopedics. MRI performed 04/10: IMPRESSION: 1. Status post distal quadriceps tendon repair. Evaluation is difficult on this exam given artifact however irregularity and increased signal within the distal quadriceps, more severe medially, suggests a partial-thickness distal quadriceps tear. 2. Large right knee joint effusion with suspected small joint body. 3. Oblique tear of the body and posterior horn of the medial meniscus. 4. Diffuse synovial enhancement, a nonspecific finding which could be correlated with joint fluid analysis. Synovial fluid analysis form second aspirate 04/10: 19,788 WBC (95% polys), 3000 RBC, + uric acid crystals, Lyme PCR negative. Culture from first aspirate 04/10 growing coag neg Staph. Cultures from second aspirate on 04/10 and aspirate from washout 04/11 are negative thus far. Receiving IV vancomycin for possible septic arthritis. Consult ID for further recommendations. Started on indomethacin for gout flare. GOUT History of gout. Has taken allopurinol in past, but not recently. Synovial fluid demonstrates uric acid crystals. Serum uric acid = 8.2. Best to avoid steroids if possible due to history of DM with HHNK. Started on indomethacin. Start allopurinol in 2 weeks. HYPERTENSIVE HEART DISEASE Compensated. Continue carvedilol, lisinopril, hydrochlorothiazide. HYPERTENSION Continue carvedilol, amlodipine, lisinopril, hydrochlorothiazide. DM TYPE 2 History of what sounds like HHNK years ago. Treated with insulin for some time, then weaned off. Now diet controlled. Hgb A1C 6.2 01/08/17. FBS today = 139. Follow. VTE PROPHYLAXIS SQ heparin. Ambulate as able. DISPOSITION Expected discharge to home. Primary Care follow-up with Dr. Salazar. Cardiology follow-up with Dr. Godwin + Rubio Deleon PA-C. . Consultants: Ortho ID . Procedures: arthrocentesis MRI right knee IV medications right knee arthroscopy, partial medial menisectomy, chondroplasty patellar/femoral, removal of loose body, partial synovectomy, debridement of gout crystals by Dr. Hoover on 04/11/17 . Current Inpatient Medications: Current Inpatient Medications Medications (Trade) Dose Ordered Sig/Jesus Route Start Time Stop Time Status Last Admin Dose Admin Heparin Sodium (Porcine) (Heparin Sq 5000 Unit/0.5ml) 5,000 unit Q8 SQ 04/10/17 06:00 05/10/17 05:59 04/12/17 21:20 5,000 UNIT Aspirin (Ecotrin Tab) 81 mg QAM PO 04/10/17 08:00 05/10/17 07:59 04/12/17 08:36 81 MG Amlodipine Besylate (Norvasc Tab) 5 mg DAILY PO 04/10/17 08:00 05/10/17 07:59 04/12/17 08:37 5 MG Carvedilol (Coreg Tab) 12.5 mg BID PO 04/10/17 08:00 05/10/17 07:59 04/12/17 21:20 12.5 MG Acetaminophen (Tylenol Tab) 325 mg Q6H PRN PO 04/10/17 04:00 05/10/17 03:59 Ondansetron HCl (Zofran Inj) 4 mg Q4H PRN IV 04/10/17 04:00 05/10/17 03:59 Hydromorphone HCl (Dilaudid Inj) 0.5 mg Q3H PRN IV 04/10/17 04:00 04/24/17 03:59 Lorazepam (Ativan Inj) 0.5 mg Q4 PRN IV 04/10/17 04:00 05/10/17 03:59 Tramadol HCl (Ultram Tab) pain not relie... Q4 PRN PO 04/10/17 04:00 05/10/17 03:59 04/11/17 20:41 50 MG Vancomycin HCl (Consult) 1 ea UD PRN N/A 04/10/17 04:45 05/10/17 04:44 Gadobutrol (Gadavist) 12.5 mmol UD PRN IV 04/10/17 21:45 04/14/17 21:44 Indomethacin (Indocin Cap) 25 mg TID PO 04/11/17 20:00 05/11/17 19:59 04/12/17 21:20 25 MG Lisinopril (Zestril Tab) 5 mg QAM PO 04/12/17 09:00 05/12/17 08:59 04/12/17 08:38 5 MG Pantoprazole Sodium (Protonix Tab) 40 mg QAM PO 04/13/17 09:00 05/13/17 08:59 Vancomycin HCl 2000 mg/Sodium Chloride 540 ml @ 200 mls/hr Q12@0000,1200 IV 04/13/17 00:00 05/25/17 00:00
[2017-04-12 23:00] VITALS: BP 126/67; PULSE 72; TEMP 36.7; O2SAT 95
[2017-04-12] MEDS: VANCOMYCIN INJ 2,000 MG in SODIUM CHLORIDE 0.9% 500ML 500 ML IV SCH (23:28)
[2017-04-13 05:33] LABS: HEMATOCRIT 33.3 % (42-52); MEAN CELL VOLUME 84.7 fL (80-100); MEAN CORPUSCULAR HEMOGLOBIN 26.5 pg (25-34); MEAN CORPUSCULAR HGB CONC 31.2 g/dl (32-36); MEAN PLATELET VOLUME 8.8 fL (7.4-10.4); PLATELET COUNT 415 K/uL (130-400); RED BLOOD COUNT 3.93 M/uL (4.7-6.1)
[2017-04-13] MEDS: HEPARIN SOD 5000 UNIT/0.5 ML CARP SQ SCH ×3 (05:34→21:11)
[2017-04-13 05:52] LABS: BUN/CREATININE RATIO 17.1 (10-20); CALCIUM 8.2 mg/dl (8.5-10.1); CREATININE 0.92 mg/dl (0.60-1.40); POTASSIUM 3.9 mmol/L (3.5-5.1)
[2017-04-13 07:18] VITALS: BP 146/80; PULSE 68; TEMP 36.6; O2SAT 96
[2017-04-13] MEDS: AMLODIPINE BESYLATE 5 MG TAB PO SCH (09:10)
[2017-04-13] MEDS: CARVEDILOL 12.5 MG TAB PO SCH ×2 (09:10→21:14)
[2017-04-13] MEDS: ASPIRIN 81 MG ECTAB PO SCH (09:10)
[2017-04-13] MEDS: PANTOprazole SOD 40 MG TAB PO SCH (09:11)
[2017-04-13] MEDS: INDOMETHACIN 25 MG CAP PO SCH ×3 (09:11→21:15)
[2017-04-13] MEDS: LISINOPRIL 5 MG TAB PO SCH (09:12)
--- NOTE | 2017-04-13 09:41 | Orthopedic Progress Note ---
Orthopedic Progress Note Date of Service Apr 13, 2017. Subjective Post OP Day: 2 Reports: feeling well, calf pain, Denies: chest pain, SOB, nausea / vomiting, light headedness Additional Notes: Pt awake, alert. States that knee is feeling better overall. No new complaints. Objective calves soft nontender, N/V intact, incision C/D/I, A&O x3 Drains removed without difficulty. Incisions redressed. Pt now able to do SLR on his own with mild discomfort. Date Time Temp Pulse Resp B/P (MAP) Pulse Ox O2 Delivery O2 Flow Rate FiO2 04/13/17 07:18 36.6 68 17 146/80 (102) 96 Room Air 04/12/17 23:30 Room Air 04/12/17 23:00 36.7 72 18 126/67 (86) 95 Room Air 04/12/17 15:45 Room Air 04/12/17 14:54 36.7 80 16 132/73 (92) 97 Room Air Laboratory Results 24 Hours: Test 04/13/17 05:16 Hematocrit 33.3 % Hemoglobin 10.4 g/dL Assessment & Plan Assessment: POD 2 s/p Right knee arthroscopy; Possible septic right knee, gout, osteoarthritis, medial meniscus tear, partial tear quad tendon with quadriceps and patellar tendinopathy. Plan: Overall improvement with quad strength. Decreased pain. Ambulating with PT Follow Cx's - On Vancomycin On Indocin for Gout. Watch BUN/Creat Dr Angela to discuss with ID Team Daily dressing changes Continue immobilizer with ambulation, WBAT. PT/OT Inhouse Planning Pain Management: Ultram, Dilaudid, PO Tylenol DVT Prophylaxis: TEDs, SCDs, ASA
--- NOTE | 2017-04-13 09:50 | Consultant Recommendations ---
Copy Coordinator Recommendations Date of Service Apr 13, 2017. Copy Coordinator Recommendations Dictating an addendum on Mina Posadas. Mr. foley was examined and has an inability to fully extend or in any case anyway actively extend his right knee he complains very little pain we will await his MRI he has a history of a previous quadriceps tendon disruption is he was aspirated today instructed 40 mL of bright yellow xanthochromic inflammatory type fluid that did not appear to be purulent fluid sent for Gram stain culture and sensitivity crystal analysis cell count this in addition to the MRI findings to guide appropriate treatment signed Ricardo Feliciano M.D. 04/13/17 Pt may be WBAT with immobilizer on the RLE. Crutches or walker for ambulation initially. Continue quad set exercises daily ACTIVITY RECOMMENDATIONS: * You may walk on the leg with or without crutches as comfort permits. * Bending of the knee should start at once. * Do not shower for 48 hours following surgery. SPECIAL CARE INSTRUCTIONS: * You may cleanse the skin adjacent to the small wounds with soap and water at the time of the first dressing change. * The application of an ice bag to the front and sides of the knee will decrease swelling and discomfort for the first 48 hours. * The small incisions may be sore and develop bruising. This bruising does not require any special care. SPECIAL PRECAUTIONS: * If you experience unusual pain unrelieved by prescriptions, temperature elevation (100 degrees F. or above) or progressive swelling or bleeding, you should contact our office at for further evaluation. * You may have been prescribed pain medication. If you experience nausea and/or fine skin rash, discontinue this medication and contact our office at for an alternate medication. DRESSING: * Dressing should be comfortable and absorb any leakage of fluid and/or blood. * The dressing may become moist or bloodstained. * Dressing may be changed daily after surgery and bandaids placed over the small surgical incisions. If can be removed sooner if it becomes very soiled or loose. * Bandaids may be used over next several days as needed and can be discontinued when there is not further drainage from the wounds. FOLLOW UP VISIT: If appointment is not already scheduled: Please call [facility] to make a follow-up appointment for your surgery at .
[2017-04-13] MEDS: VANCOMYCIN INJ 2,000 MG in SODIUM CHLORIDE 0.9% 500ML 500 ML IV SCH ×2 (13:03→23:42)
[2017-04-13 15:20] VITALS: BP 131/76; PULSE 69; TEMP 36.6; O2SAT 98
--- NOTE | 2017-04-13 19:03 | Progress Note ---
Medicine Progress Note Date & Time of Visit: Apr 13, 2017 at 14:50 . Subjective No fever. Knee pain improved. No chest pain. No cough or shortness of breath. No nausea, vomiting, diarrhea. . Objective Last 8 Hrs Date Time Temp Pulse Resp B/P (MAP) Pulse Ox O2 Delivery O2 Flow Rate FiO2 04/13/17 15:30 Room Air 04/13/17 15:20 36.6 69 18 131/76 (94) 98 Room Air Physical Exam: General- lying in bed, no distress Neck- no JVD Lungs- clear Heart- RRR Abdomen- bowel sounds, soft, nontender Extremities- right knee immobilizer applied; no pretibial edema or calf tenderness Neuro- alert . Laboratory Results: Last 24 Hours Test 04/13/17 05:16 White Blood Count 8.10 K/uL Red Blood Count 3.93 M/uL Hemoglobin 10.4 g/dL Hematocrit 33.3 % Mean Corpuscular Volume 84.7 fL Mean Corpuscular Hemoglobin 26.5 pg Mean Corpuscular Hemoglobin Concent 31.2 g/dl RDW Standard Deviation 42.1 fL RDW Coefficient of Variation 13.5 % Platelet Count 415 K/uL Mean Platelet Volume 8.8 fL Sodium Level 141 mmol/L Potassium Level 3.9 mmol/L Chloride Level 108 mmol/L Carbon Dioxide Level 29 mmol/L Anion Gap 4.0 mmol/L Blood Urea Nitrogen 16 mg/dl Creatinine 0.92 mg/dl Est Creatinine Clear Calc Drug Dose 136.0 ml/min Estimated GFR () 110.4 Estimated GFR (Non- 95.3 BUN/Creatinine Ratio 17.1 Random Glucose 115 mg/dl Calcium Level 8.2 mg/dl Assessment & Plan RIGHT KNEE PAIN AND SWELLING Presented with pain and swelling of right knee. No trauma. Plain films demonstrated degenerative changes, small joint effusion. Arthrocentesis performed in ED, only small amount of fluid obtained. Gram stain showed a few WBCs, no organisms. Orthopedics consulted. Inflammatory arthritis, infectious arthritis, possible rerupture of quadriceps tendon considered. Aspiration of knee performed by Orthopedics. MRI performed 04/10: IMPRESSION: 1. Status post distal quadriceps tendon repair. Evaluation is difficult on this exam given artifact however irregularity and increased signal within the distal quadriceps, more severe medially, suggests a partial-thickness distal quadriceps tear. 2. Large right knee joint effusion with suspected small joint body. 3. Oblique tear of the body and posterior horn of the medial meniscus. 4. Diffuse synovial enhancement, a nonspecific finding which could be correlated with joint fluid analysis. Synovial fluid analysis form second aspirate 04/10: 19,788 WBC (95% polys), 3000 RBC, + uric acid crystals, Lyme PCR negative. Arthroscopy with partial medial meniscectomy, chondroplasty patellar/femoral, removal of loose body, partials synovectomy, debridement of gout crystals performed by Dr. Hoover on 04/11/17. Culture from first aspirate 04/10 growing coag neg Staph. Cultures from second aspirate on 04/10 and aspirate from washout 04/11 are negative thus far. Receiving IV vancomycin for possible septic arthritis. ID consulted for further recommendations. Started on indomethacin for gout flare. GOUT History of gout; has taken allopurinol in past, but not recently. Synovial fluid demonstrated uric acid crystals. Serum uric acid was 8.2. Best to avoid steroids if possible due to history of DM with HHNK. Started on indomethacin. Start allopurinol in 2 weeks. HYPERTENSIVE HEART DISEASE Compensated. Continue carvedilol, lisinopril, hydrochlorothiazide. HYPERTENSION Continue carvedilol, amlodipine, lisinopril, hydrochlorothiazide. DM TYPE 2 History of what sounds like HHNK years ago. Treated with insulin for some time, then weaned off. Now diet controlled. Hgb A1C 6.2 01/08/17. FBS today = 115. Follow. VTE PROPHYLAXIS SQ heparin. Ambulate as able. DISPOSITION Expected discharge to home. Primary Care follow-up with Dr. Salazar. Cardiology follow-up with Dr. Godwin + Rubio Deleon PA-C. . Consultants: Ortho ID . Procedures: arthrocentesis MRI right knee IV medications right knee arthroscopy, partial medial menisectomy, chondroplasty patellar/femoral, removal of loose body, partial synovectomy, debridement of gout crystals by Dr. Hoover on 04/11/17 . Current Inpatient Medications: Current Inpatient Medications Medications (Trade) Dose Ordered Sig/Jesus Route Start Time Stop Time Status Last Admin Dose Admin Heparin Sodium (Porcine) (Heparin Sq 5000 Unit/0.5ml) 5,000 unit Q8 SQ 04/10/17 06:00 05/10/17 05:59 04/13/17 14:24 5,000 UNIT Aspirin (Ecotrin Tab) 81 mg QAM PO 04/10/17 08:00 05/10/17 07:59 04/13/17 09:10 81 MG Amlodipine Besylate (Norvasc Tab) 5 mg DAILY PO 04/10/17 08:00 05/10/17 07:59 04/13/17 09:10 5 MG Carvedilol (Coreg Tab) 12.5 mg BID PO 04/10/17 08:00 05/10/17 07:59 04/13/17 09:10 12.5 MG Acetaminophen (Tylenol Tab) 325 mg Q6H PRN PO 04/10/17 04:00 05/10/17 03:59 Ondansetron HCl (Zofran Inj) 4 mg Q4H PRN IV 04/10/17 04:00 05/10/17 03:59 Hydromorphone HCl (Dilaudid Inj) 0.5 mg Q3H PRN IV 04/10/17 04:00 04/24/17 03:59 Lorazepam (Ativan Inj) 0.5 mg Q4 PRN IV 04/10/17 04:00 05/10/17 03:59 Tramadol HCl (Ultram Tab) pain not relie... Q4 PRN PO 04/10/17 04:00 05/10/17 03:59 04/11/17 20:41 50 MG Vancomycin HCl (Consult) 1 ea UD PRN N/A 04/10/17 04:45 05/10/17 04:44 Gadobutrol (Gadavist) 12.5 mmol UD PRN IV 04/10/17 21:45 04/14/17 21:44 Indomethacin (Indocin Cap) 25 mg TID PO 04/11/17 20:00 05/11/17 19:59 04/13/17 14:22 25 MG Lisinopril (Zestril Tab) 5 mg QAM PO 04/12/17 09:00 05/12/17 08:59 04/13/17 09:12 5 MG Pantoprazole Sodium (Protonix Tab) 40 mg QAM PO 04/13/17 09:00 05/13/17 08:59 04/13/17 09:11 40 MG Vancomycin HCl 2000 mg/Sodium Chloride 540 ml @ 200 mls/hr Q12@0000,1200 IV 04/13/17 00:00 05/25/17 00:00 04/13/17 13:03 200 MLS/HR
[2017-04-13 21:10] VITALS: BP 120/67; PULSE 74
[2017-04-13 23:09] VITALS: BP 138/80; PULSE 73; TEMP 36.6; O2SAT 97
[2017-04-14] MEDS: HEPARIN SOD 5000 UNIT/0.5 ML CARP SQ SCH ×2 (05:48→13:49)
[2017-04-14 07:10] VITALS: BP 153/84; PULSE 68; TEMP 36.7; O2SAT 97
[2017-04-14] MEDS: CARVEDILOL 12.5 MG TAB PO SCH (07:56)
--- NOTE | 2017-04-14 07:56 | Anesthesiology Progress Note ---
Anesthesia Post Op Note Date & Time Apr 14, 2017 at 07:55 Vital Signs Pain Intensity: 0.0 Vital Signs Past 12 Hours Date Time Temp Pulse Resp B/P (MAP) Pulse Ox O2 Delivery O2 Flow Rate FiO2 04/14/17 07:10 36.7 68 16 153/84 (107) 97 Room Air 04/14/17 00:15 Room Air 04/13/17 23:09 36.6 73 14 138/80 (99) 97 Room Air 04/13/17 21:10 74 120/67 (84) Notes Mental Status: alert / awake / arousable, participated in evaluation Pt Amnestic to Procedure: Yes Nausea / Vomiting: adequately controlled Pain: adequately controlled Airway Patency, RR, SpO2: stable & adequate BP & HR: stable & adequate Hydration State: stable & adequate Anesthetic Complications: no major complications apparent
[2017-04-14] MEDS: INDOMETHACIN 25 MG CAP PO SCH ×2 (07:57→13:46)
[2017-04-14] MEDS: PANTOprazole SOD 40 MG TAB PO SCH (07:57)
[2017-04-14] MEDS: AMLODIPINE BESYLATE 5 MG TAB PO SCH (07:57)
[2017-04-14] MEDS: ASPIRIN 81 MG ECTAB PO SCH (07:57)
[2017-04-14] MEDS: LISINOPRIL 5 MG TAB PO SCH (07:58)
--- NOTE | 2017-04-14 10:17 | Infectious Disease Progress Nt ---
Progress Note Date of Service Apr 14, 2017. Subjective Pt evaluation today including: conversation w/ patient, physical exam, chart review, lab review, review of studies, conversation w/ senior wind energy consultant, review of inpatient medication list Patient feeling better. Pain improving. No fever. Culture with coag-neg Staph and GPB. No other new complaints. All Other Systems: Reviewed and Negative Medications Current Inpatient Medications Medications (Trade) Dose Ordered Sig/Jesus Route Start Time Stop Time Status Last Admin Dose Admin Heparin Sodium (Porcine) (Heparin Sq 5000 Unit/0.5ml) 5,000 unit Q8 SQ 04/10/17 06:00 05/10/17 05:59 04/14/17 05:48 5,000 UNIT Aspirin (Ecotrin Tab) 81 mg QAM PO 04/10/17 08:00 05/10/17 07:59 04/14/17 07:57 81 MG Amlodipine Besylate (Norvasc Tab) 5 mg DAILY PO 04/10/17 08:00 05/10/17 07:59 04/14/17 07:57 5 MG Carvedilol (Coreg Tab) 12.5 mg BID PO 04/10/17 08:00 05/10/17 07:59 04/14/17 07:56 12.5 MG Acetaminophen (Tylenol Tab) 325 mg Q6H PRN PO 04/10/17 04:00 05/10/17 03:59 Ondansetron HCl (Zofran Inj) 4 mg Q4H PRN IV 04/10/17 04:00 05/10/17 03:59 Hydromorphone HCl (Dilaudid Inj) 0.5 mg Q3H PRN IV 04/10/17 04:00 04/24/17 03:59 Lorazepam (Ativan Inj) 0.5 mg Q4 PRN IV 04/10/17 04:00 05/10/17 03:59 Tramadol HCl (Ultram Tab) pain not relie... Q4 PRN PO 04/10/17 04:00 05/10/17 03:59 04/11/17 20:41 50 MG Gadobutrol (Gadavist) 12.5 mmol UD PRN IV 04/10/17 21:45 04/14/17 21:44 Indomethacin (Indocin Cap) 25 mg TID PO 04/11/17 20:00 05/11/17 19:59 04/14/17 07:57 25 MG Lisinopril (Zestril Tab) 5 mg QAM PO 04/12/17 09:00 05/12/17 08:59 04/14/17 07:58 5 MG Pantoprazole Sodium (Protonix Tab) 40 mg QAM PO 04/13/17 09:00 05/13/17 08:59 04/14/17 07:57 40 MG Objective Vital Signs Date Time Temp Pulse Resp B/P (MAP) Pulse Ox O2 Delivery O2 Flow Rate FiO2 04/14/17 07:15 Room Air 04/14/17 07:10 36.7 68 16 153/84 (107) 97 Room Air 04/14/17 00:15 Room Air 04/13/17 23:09 36.6 73 14 138/80 (99) 97 Room Air 04/13/17 21:10 74 120/67 (84) 04/13/17 15:30 Room Air 04/13/17 15:20 36.6 69 18 131/76 (94) 98 Room Air Physical Exam General Appearance: WD/WN, no apparent distress Eyes: normal inspection, sclerae normal ENT: normal ENT inspection, pharynx normal Neck: supple, no adenopathy, trachea midline Respiratory/Chest: chest non-tender, lungs clear, normal breath sounds, no respiratory distress Cardiovascular: regular rate, rhythm, no gallop, no murmur Abdomen: normal bowel sounds, non tender, soft, no organomegaly Extremities: non-tender, no calf tenderness Neurologic/Psychiatric: alert, oriented x 3 Skin: normal color, warm/dry, no rash Lymphatic: no adenopathy Laboratory Results RUN DATE: 04/14/17 [facility] PAGE 1 RUN TIME: 957 Specimen Inquiry PATIENT: BIGG COLE LOC: Eli U # : [id number] AGE/SX: 52/M ROOM: E315 REG : 04/10/[address]: Jason Miller M.D. : 1965 BED: 1 DIS : STATUS: ADM IN TLOC: SPEC #: [id number] HARRIS: 04/10/17 STATUS: RES REQ #: [id number] RECD: 04/10/[address]: Tamika Pino PA-C SOURCE: JOINT FLSP ENTR: 04/10/[address]: Jason Taylor MD SPDESC: KNEE RIGHT TedoSarthak D.O. ORDERED: AER/TRIPP CULTSMR COMMENTS: Specimen Comment specimen walked to lab via RN Has Specimen Been Obtained/Collected? Y Procedure Result Verified Site GRAM STAIN Final 04/10/17 RESULT FEW WBCs SEEN NO ORGANISMS SEEN OR AER/TRIPP CULT Preliminary 04/14/17-957 Organism 1 COAG NEG STAPHYLOCOCCUS QUANITY RARE SENS SENSITIVITY TO FOLLOW ANAS NO ANAEROBES ISOLATED. Organism 2 PROBABLE TRIPP GRAM POS BACILLI QUANITY FEW SENS NO SENSITIVITY TO FOLLOW 1. COAG NEG STAPHYLOCOCCUS Target Route Dose RX AB Cost M.I.C. IQ ------ ----- ------ -- ------ -------- - ------ TRIMET/SULFA S <=0.5/ 9.5 * OXACILLIN S <=0.25 VANCOMYCIN S 2 ERYTHROMYCIN S <=0.5 TETRACYCLINE S <=4 CLINDAMYCIN S <=0.5 DAPTOMYCIN S <=0.5 S = SENSITIVE I = INTERMEDIATE R = RESISTANT Assessment and Plan 50-year-old male with history of prior gouty episodes, now presents with acute onset of severe right knee pain and swelling, diffuse arthralgias, now status post arthroscopy with finding of gout crystals on pathologic examination. 1/3 cultures now growing coagulase negative Staph and gram positive bacilli. Likely this represents contaminant and so will discontinue Vancomycin and follow clinical response off Abx. See no contraindication for discharge from ID standpoint. Discussed with medicine and ortho.
[2017-04-14] MEDS ORDERED: VANCOMYCIN TROUGH ONE (11:30)
[2017-04-14 12:56] LABS: BUN/CREATININE RATIO 15.4 (10-20); CALCIUM 9.1 mg/dl (8.5-10.1); CREATININE 0.98 mg/dl (0.60-1.40); POTASSIUM 4.1 mmol/L (3.5-5.1)
--- NOTE | 2017-04-14 15:24 | Progress Note ---
Medicine Progress Note Date & Time of Visit: Apr 14, 2017 at 15:24 . Subjective No fever. Right knee pain improved. No chest pain, cough, shortness of breath. No nausea, vomiting, melena, hematochezia. . Objective Vital signs @ 07:10 temp 36.7, pulse 68, respirations 16, blood pressure 153/ 84 . Physical Exam: General- no distress Neck- no JVD Lungs- clear Heart- RRR Abdomen- normal bowel sounds, soft, nontender Extremities- right knee immobilizer applied; no pretibial edema or calf tenderness Neuro- alert . Laboratory Results: Last 24 Hours Test 04/14/17 11:46 Sodium Level 141 mmol/L Potassium Level 4.1 mmol/L Chloride Level 105 mmol/L Carbon Dioxide Level 28 mmol/L Anion Gap 8.0 mmol/L Blood Urea Nitrogen 15 mg/dl Creatinine 0.98 mg/dl Est Creatinine Clear Calc Drug Dose 127.6 ml/min Estimated GFR () 102.3 Estimated GFR (Non- 88.3 BUN/Creatinine Ratio 15.4 Random Glucose 106 mg/dl Calcium Level 9.1 mg/dl Assessment & Plan RIGHT KNEE PAIN AND SWELLING Presented with pain and swelling of right knee. No trauma. Plain films demonstrated degenerative changes, small joint effusion. Arthrocentesis performed in ED, only small amount of fluid obtained. Gram stain showed a few WBCs, no organisms. Orthopedics consulted. Inflammatory arthritis, infectious arthritis, possible rerupture of quadriceps tendon considered. Aspiration of knee performed by Orthopedics. MRI performed 04/10: IMPRESSION: 1. Status post distal quadriceps tendon repair. Evaluation is difficult on this exam given artifact however irregularity and increased signal within the distal quadriceps, more severe medially, suggests a partial-thickness distal quadriceps tear. 2. Large right knee joint effusion with suspected small joint body. 3. Oblique tear of the body and posterior horn of the medial meniscus. 4. Diffuse synovial enhancement, a nonspecific finding which could be correlated with joint fluid analysis. Synovial fluid analysis form second aspirate 04/10: 19,788 WBC (95% polys), 3000 RBC, + uric acid crystals, Lyme PCR negative. Arthroscopy with partial medial meniscectomy, chondroplasty patellar/femoral, removal of loose body, partials synovectomy, debridement of gout crystals performed by Dr. Hoover on 04/11/17. Culture from first aspirate 04/10 growing coag neg Staph. Cultures from second aspirate on 04/10 and aspirate from washout 04/11 are negative thus far. Received IV vancomycin for possible septic arthritis. ID consulted for further recommendations. [place] that coag negative Staph from first arthrocentesis was a contaminate. Antibiotics discontinued. GOUT History of gout; has taken allopurinol in past, but not recently. Synovial fluid demonstrated uric acid crystals. Serum uric acid was 8.2. Best to avoid steroids if possible due to history of DM with HHNK. Started on indomethacin for gout flare. Continue indomethacin 25 mg 3 times a day with food for 7 days, then PRN. Start allopurinol in 2 weeks, increasing dose weekly from 100-200-300 milligrams daily. HISTORY RIGHT QUADRICEPS RUPTURE Management per Orthopedics. HYPERTENSIVE HEART DISEASE Compensated. Continue carvedilol, lisinopril, hydrochlorothiazide. HYPERTENSION Continue carvedilol, amlodipine, lisinopril, hydrochlorothiazide. DM TYPE 2 History of what sounds like HHNK years ago. Treated with insulin for some time, then weaned off. Now diet controlled. Hgb A1C 6.2 01/08/17. FBS today = 106. Follow. VTE PROPHYLAXIS SQ heparin. Ambulate as able. DISPOSITION Discharge to home. Will arrange for short-term follow-up at [facility]. Long-term Primary Care follow-up with Dr. Salazar. Cardiology follow-up with Dr. Godwin + Rubio Deleon PA-C. . Consultants: Ortho ID . Procedures: arthrocentesis MRI right knee IV medications right knee arthroscopy, partial medial menisectomy, chondroplasty patellar/femoral, removal of loose body, partial synovectomy, debridement of gout crystals by Dr. Hoover on 04/11/17 . Current Inpatient Medications: Current Inpatient Medications Medications (Trade) Dose Ordered Sig/Jesus Route Start Time Stop Time Status Last Admin Dose Admin Heparin Sodium (Porcine) (Heparin Sq 5000 Unit/0.5ml) 5,000 unit Q8 SQ 04/10/17 06:00 05/10/17 05:59 04/14/17 13:49 5,000 UNIT Aspirin (Ecotrin Tab) 81 mg QAM PO 04/10/17 08:00 05/10/17 07:59 04/14/17 07:57 81 MG Amlodipine Besylate (Norvasc Tab) 5 mg DAILY PO 04/10/17 08:00 05/10/17 07:59 04/14/17 07:57 5 MG Carvedilol (Coreg Tab) 12.5 mg BID PO 04/10/17 08:00 05/10/17 07:59 04/14/17 07:56 12.5 MG Acetaminophen (Tylenol Tab) 325 mg Q6H PRN PO 04/10/17 04:00 05/10/17 03:59 Ondansetron HCl (Zofran Inj) 4 mg Q4H PRN IV 04/10/17 04:00 05/10/17 03:59 Hydromorphone HCl (Dilaudid Inj) 0.5 mg Q3H PRN IV 04/10/17 04:00 04/24/17 03:59 Lorazepam (Ativan Inj) 0.5 mg Q4 PRN IV 04/10/17 04:00 05/10/17 03:59 Tramadol HCl (Ultram Tab) pain not relie... Q4 PRN PO 04/10/17 04:00 05/10/17 03:59 04/11/17 20:41 50 MG Gadobutrol (Gadavist) 12.5 mmol UD PRN IV 04/10/17 21:45 04/14/17 21:44 Indomethacin (Indocin Cap) 25 mg TID PO 04/11/17 20:00 05/11/17 19:59 04/14/17 13:46 25 MG Lisinopril (Zestril Tab) 5 mg QAM PO 04/12/17 09:00 05/12/17 08:59 04/14/17 07:58 5 MG Pantoprazole Sodium (Protonix Tab) 40 mg QAM PO 04/13/17 09:00 05/13/17 08:59 04/14/17 07:57 40 MG
[2017-04-14] MEDS ORDERED: INDO25CA14 PO (15:29)
[2017-04-14 15:36] VITALS: BP 151/82; PULSE 68; TEMP 36.7; O2SAT 98
[2017-04-14] MEDS ORDERED: RABE20TA5 PO (15:43)
[2017-04-14] MEDS ORDERED: INDO-22 PO (15:43)
[2017-04-14] MEDS ORDERED: ALL300 PO (15:43)
[2017-04-14] MEDS ORDERED: ALL100 PO (15:43)
--- NOTE | 2017-04-14 15:59 | Discharge Instructions ---
Discharge Instructions Date of Service Apr 14, 2017. Admission Reason for Admission: knee pain . Discharge Discharge Diagnosis / Problem: gout attack right knee Discharge Goals Goal(s): Decrease discomfort, Improve function Activity Recommendations Activity Limitations: as noted below . Instructions / Follow-Up Instructions / Follow-Up APPOINTMENTS INTERNAL MEDICINE 04/21/2017 1:00 PM Lissette Zhao MD General Internal Medicine [facility] ORTHOPEDICS Dr. Hoover as noted below. PRIMARY CARE Dr. Salazar. INSTRUCTIONS Knee pain and swelling was due to a gout attack. Indomethacin (Indocin) helps with joint inflammation from gout attacks. Take 1 pill 3 times a day with food for 7 days. Then take 1 pill 3 times a day with food as needed for joint pain. Allopurinol (Zyloprim) helps reduce uric acid production so that you are less likely to have recurrent gout attacks. You should wait 2 weeks before starting. On 04/28 start 100 mg daily for 7 days [100 mg pill, 1 pill daily] On 05/05 start 200 mg daily for 7 days [100 mg pill, 2 pills daily] On 05/12 start 300 mg daily until further notice [300 mg pill daily] Seek medical attention if you have: * temperature above 101 * chest pain or trouble breathing * abdominal pain, nausea, vomiting * diarrhea, dark stools or bloody stools * worsening knee pain or swelling * any unanswered questions or concerns Call [phone] if symptoms are severe. Call if you have any questions or problems. My cell # is [phone]. You can also reach a [facility] hospitalist on duty at [facility] 24 hours a day by calling [phone]. Please take good care of yourself. Jason Miller . Current Hospital Diet Patient's current hospital diet: AHA Diet (Heart Healthy) Discharge Diet Recommended Diet: AHA Diet (Heart Healthy), Diabetes Type 2 Diet Procedures Procedures Performed: Right Knee Arthroscopy, partial medial menisectomy, chondroplasty patellar/femoral, removal of loose body, partial synovectomy, debridement of gout crystals Pending Studies Studies pending at discharge: no Work Instructions Return To Work: after follow-up Additional Instructions: Mina Posadas was absent from work since 04/07/17 due to illness. Return to work date to be determined after recheck. Medical Emergencies . Who to Call and When: Medical Emergencies: If at any time you feel your situation is an emergency, please call 911 immediately. . Non-Emergent Contact Non-Emergency issues call your: Primary Care Provider, Hospital Doctor, Specialist (Orthopedic Surgery) . . "Provider Documentation" section prepared by Jason Miller. . Deputy Insurance Commissioner Recommendations Deputy Insurance Commissioner Recommendations: ACTIVITY RECOMMENDATIONS: * You may walk on the leg with or without crutches as comfort permits. * Bending of the knee should start at once. * Do not shower for 48 hours following surgery. SPECIAL CARE INSTRUCTIONS: * You may cleanse the skin adjacent to the small wounds with soap and water at the time of the first dressing change. * The application of an ice bag to the front and sides of the knee will decrease swelling and discomfort for the first 48 hours. * The small incisions may be sore and develop bruising. This bruising does not require any special care. SPECIAL PRECAUTIONS: * If you experience unusual pain unrelieved by prescriptions, temperature elevation (100 degrees F. or above) or progressive swelling or bleeding, you should contact our office at for further evaluation. * You may have been prescribed pain medication. If you experience nausea and/or fine skin rash, discontinue this medication and contact our office at for an alternate medication. DRESSING: * Dressing should be comfortable and absorb any leakage of fluid and/or blood. * The dressing may become moist or bloodstained. * Dressing may be changed daily after surgery and bandaids placed over the small surgical incisions. If can be removed sooner if it becomes very soiled or loose. * Bandaids may be used over next several days as needed and can be discontinued when there is not further drainage from the wounds. FOLLOW UP VISIT: Dr. Hoover in 1-2 weeks. Please call [facility] to make a follow-up appointment for your surgery at . . VTE Core Measure Inpt VTE Proph given/why not?: Unfractionated heparin SQ
[2017-04-14 16:30] VITALS: O2SAT 98
[2017-04-14 16:34] VITALS: BP 151/82; PULSE 68; TEMP 36.7; O2SAT 98
--- NOTE | 2017-04-15 06:39 | Discharge Summary ---
Discharge Summary Date of Service Apr 15, 2017. Discharge Summary Admission Date: Apr 10, 2017 at 02:00 Discharge Date: Apr 14, 2017 Discharge Disposition: Home Principal Diagnosis: gout flare right knee . Secondary Diagnoses/Problems: Chronic and Resolved Medical Problems: (1) Diabetes mellitus, type 2 Permanent Comment: diet controlled, history of HHNK Status: Chronic (2) Gout Status: Chronic (3) Hypertension Status: Chronic (4) Hypertensive heart disease Status: Chronic (5) Right Quadriceps Tendon Tear Status: Chronic . Procedures: arthrocentesis MRI right knee IV medications right knee arthroscopy, partial medial menisectomy, chondroplasty patellar/femoral, removal of loose body, partial synovectomy, debridement of gout crystals by Dr. Hoover on 04/11/17 . Consultations: Ortho ID . Medication Reconciliation New Medications: Allopurinol (Allopurinol) 100 Mg Tab 0 PO UD, #21 TAB 0 Refills 04/28 - 1 pill daily for 7 days 05/05 - 2 pills daily for 7 days 05/12 - start prescription for 300 mg daily Allopurinol (Allopurinol) 300 Mg Tab 300 MG PO DAILY, #30 TAB 5 Refills Start on 05/12/17. Indomethacin (Indocin) 25 Mg Cap 25 MG PO UD, #21 CAP 1 Refill 1 pill 3 times a day with food for 7 days. Then 1 pill 3 times a day as needed for joint pain. Rabeprazole Sodium (Aciphex) 20 Mg Tab 20 MG PO DAILY, #7 TAB Continued Medications: Amlodipine (Norvasc) 5 Mg Tab 5 MG PO DAILY, TAB Aspirin (Aspirin Chewable) 81 Mg Chew 81 MG PO QAM Carvedilol (Coreg) 12.5 Mg Tab 12.5 MG PO BID, TAB Hydrochlorothiazide (Hctz) 25 Mg Tab 25 MG PO DAILY, TAB Lisinopril (Zestril) 40 Mg Tab 40 MG PO DAILY, TAB Admission Information HPI (per Admitting provider): Few days history of achy bilateral lower extremity pain different from gout more pain on the right knee than usual especially with walking. Patient had fever chills no trauma denies previous episodes. No chest pain no shortness of breath. At the emergency room patient received Vanco and ceftriaxone for possible septic arthritis .. Physical Exam (per Admitting): General Appearance: no apparent distress, + obese, + pertinent finding ( slightly anxious) Eyes: normal inspection ENT: normal ENT inspection Neck: supple, no JVD Respiratory/Chest: lungs clear Cardiovascular: regular rate, rhythm Abdomen/GI: soft Extremities/Musculoskelatal: + pertinent finding (dressing right knee) Skin: normal color Hospital Course RIGHT KNEE PAIN AND SWELLING Presented with pain and swelling of right knee. No trauma. Plain films demonstrated degenerative changes, small joint effusion. Arthrocentesis performed in ED, only small amount of fluid obtained. Gram stain showed a few WBCs, no organisms. Orthopedics consulted. Inflammatory arthritis, infectious arthritis, possible rerupture of quadriceps tendon considered. Aspiration of knee performed by Orthopedics. MRI performed 04/10: IMPRESSION: 1. Status post distal quadriceps tendon repair. Evaluation is difficult on this exam given artifact however irregularity and increased signal within the distal quadriceps, more severe medially, suggests a partial-thickness distal quadriceps tear. 2. Large right knee joint effusion with suspected small joint body. 3. Oblique tear of the body and posterior horn of the medial meniscus. 4. Diffuse synovial enhancement, a nonspecific finding which could be correlated with joint fluid analysis. Synovial fluid analysis form second aspirate 04/10: 19,788 WBC (95% polys), 3000 RBC, + uric acid crystals, Lyme PCR negative. Arthroscopy with partial medial meniscectomy, chondroplasty patellar/femoral, removal of loose body, partials synovectomy, debridement of gout crystals performed by Dr. Hoover on 04/11/17. Culture from first aspirate 04/10 growing coag neg Staph. Cultures from second aspirate on 04/10 and aspirate from washout 04/11 are negative thus far. Received IV vancomycin for possible septic arthritis. ID consulted for further recommendations. [place] that coag negative Staph from first arthrocentesis was a contaminate. Antibiotics discontinued. GOUT History of gout; has taken allopurinol in past, but not recently. Synovial fluid demonstrated uric acid crystals. Serum uric acid was 8.2. Best to avoid steroids if possible due to history of DM with HHNK. Started on indomethacin for gout flare. Continue indomethacin 25 mg 3 times a day with food for 7 days, then PRN. Start allopurinol in 2 weeks, increasing dose weekly from 100-200-300 milligrams daily. HISTORY RIGHT QUADRICEPS RUPTURE Management per Orthopedics. HYPERTENSIVE HEART DISEASE Compensated. Continue carvedilol, lisinopril, hydrochlorothiazide. HYPERTENSION Continue carvedilol, amlodipine, lisinopril, hydrochlorothiazide. Consider stopping HCTZ in light of gout. Will defer to Cardiology and PCP. DM TYPE 2 History of what sounds like HHNK years ago. Treated with insulin for some time, then weaned off. Now diet controlled. Hgb A1C 6.2 01/08/17. FBS today = 106. Follow. VTE PROPHYLAXIS SQ heparin. Ambulate as able. DISPOSITION Discharge to home. Will arrange for short-term follow-up at [facility]. Long-term Primary Care follow-up with Dr. Salazar. Cardiology follow-up with Dr. Godwin + Rubio Deleon PA-C. . Total time spent on discharge = 35 min. This includes examination of the patient, discharge planning, medication reconciliation, and communication with other providers. . Discharge Instructions Date of Service Apr 14, 2017. Admission Reason for Admission: knee pain . Discharge Discharge Diagnosis / Problem: gout attack right knee Discharge Goals Goal(s): Decrease discomfort, Improve function Activity Recommendations Activity Limitations: as noted below . Instructions / Follow-Up Instructions / Follow-Up APPOINTMENTS INTERNAL MEDICINE 04/21/2017 1:00 PM Lissette Zhao MD General Internal Medicine [facility] ORTHOPEDICS Dr. Hoover as noted below. PRIMARY CARE Dr. Salazar. INSTRUCTIONS Knee pain and swelling was due to a gout attack. Indomethacin (Indocin) helps with joint inflammation from gout attacks. Take 1 pill 3 times a day with food for 7 days. Then take 1 pill 3 times a day with food as needed for joint pain. Allopurinol (Zyloprim) helps reduce uric acid production so that you are less likely to have recurrent gout attacks. You should wait 2 weeks before starting. On 04/28 start 100 mg daily for 7 days [100 mg pill, 1 pill daily] On 05/05 start 200 mg daily for 7 days [100 mg pill, 2 pills daily] On 05/12 start 300 mg daily until further notice [300 mg pill daily] Seek medical attention if you have: * temperature above 101 * chest pain or trouble breathing * abdominal pain, nausea, vomiting * diarrhea, dark stools or bloody stools * worsening knee pain or swelling * any unanswered questions or concerns Call 911 if symptoms are severe. Call if you have any questions or problems. My cell # is [phone]. You can also reach a [facility] hospitalist on duty at [facility] 24 hours a day by calling [phone]. Please take good care of yourself. Jason Miller . Current Hospital Diet Patient's current hospital diet: AHA Diet (Heart Healthy) Discharge Diet Recommended Diet: AHA Diet (Heart Healthy), Diabetes Type 2 Diet Procedures Procedures Performed: Right Knee Arthroscopy, partial medial menisectomy, chondroplasty patellar/femoral, removal of loose body, partial synovectomy, debridement of gout crystals Pending Studies Studies pending at discharge: no Work Instructions Return To Work: after follow-up Additional Instructions: Mina Posadas was absent from work since 04/07/17 due to illness. Return to work date to be determined after recheck. Medical Emergencies . Who to Call and When: Medical Emergencies: If at any time you feel your situation is an emergency, please call [phone] immediately. . Non-Emergent Contact Non-Emergency issues call your: Primary Care Provider, Hospital Doctor, Specialist (Orthopedic Surgery) . . "Provider Documentation" section prepared by Jason Miller. . Lining Cementer Recommendations Lining Cementer Recommendations: ACTIVITY RECOMMENDATIONS: * You may walk on the leg with or without crutches as comfort permits. * Bending of the knee should start at once. * Do not shower for 48 hours following surgery. SPECIAL CARE INSTRUCTIONS: * You may cleanse the skin adjacent to the small wounds with soap and water at the time of the first dressing change. * The application of an ice bag to the front and sides of the knee will decrease swelling and discomfort for the first 48 hours. * The small incisions may be sore and develop bruising. This bruising does not require any special care. SPECIAL PRECAUTIONS: * If you experience unusual pain unrelieved by prescriptions, temperature elevation (100 degrees F. or above) or progressive swelling or bleeding, you should contact our office at for further evaluation. * You may have been prescribed pain medication. If you experience nausea and/or fine skin rash, discontinue this medication and contact our office at for an alternate medication. DRESSING: * Dressing should be comfortable and absorb any leakage of fluid and/or blood. * The dressing may become moist or bloodstained. * Dressing may be changed daily after surgery and bandaids placed over the small surgical incisions. If can be removed sooner if it becomes very soiled or loose. * Bandaids may be used over next several days as needed and can be discontinued when there is not further drainage from the wounds. FOLLOW UP VISIT: Dr. Hoover in 1-2 weeks. Please call [facility] to make a follow-up appointment for your surgery at . . VTE Core Measure Inpt VTE Proph given/why not?: Unfractionated heparin SQ Additional Copies To Mauricio Godwin D.O.; Rubio Deleon PA-C; Lissette ZHAO M.D.; Joey Hoover M.D.
== END 2017-04-14 18:30 | disposition home or self-care (01) | DRG 486 ==
LOC: EDBD 22:29 → C.EDC 22:30 → C.4E 04-10 02:00 → ENRESERV 04-11 18:46 → C.3E 04-11 18:57
PROVIDERS: ADMIT Internal Medicine; ATTEND Hospitalist
PROC: 0S9C3ZX Drainage of Right Knee Joint, Percutaneous Approach, Diagnostic (ICD-10-PCS; 2017-04-10)
PROC: 0S9C4ZZ Drainage of Right Knee Joint, Percutaneous Endoscopic Approach (ICD-10-PCS; principal; 2017-04-11 11:00)
PROC: 0SBC0ZZ Excision of Right Knee Joint, Open Approach (ICD-10-PCS; principal; 2017-04-11 11:00)
PROC: 0SCC0ZZ Extirpation of Matter from Right Knee Joint, Open Approach (ICD-10-PCS; principal; 2017-04-11 11:00)
DX: M00.861 Arthritis due to other bacteria, right knee (principal); I42.9 Cardiomyopathy, unspecified; N17.9 Acute kidney failure, unspecified; M1A.0610 Idiopathic chronic gout, right knee, without tophus (tophi); I50.22 Chronic systolic (congestive) heart failure; I13.0 Hypertensive heart and chronic kidney disease with heart failure and stage 1 through stage 4 chronic kidney disease, or unspecified chronic kidney disease; S76.811A Strain of other specified muscles, fascia and tendons at thigh level, right thigh, initial encounter; S83.241A Other tear of medial meniscus, current injury, right knee, initial encounter; E11.9 Type 2 diabetes mellitus without complications; D64.9 Anemia, unspecified; B95.8 Unspecified staphylococcus as the cause of diseases classified elsewhere; X58.XXXA Exposure to other specified factors, initial encounter

== ENCOUNTER → 2017-05-23 | Outpatient (CLI) | payer BC ==
[~2017-05-23] MED LIST changes: +ALL100 PO; +ALL300 PO; +AMLO-110 PO; +HYDR25TA4 PO; +INDO-22 PO; -LISI20TA3 PO; +LISI40TA PO
[2017-05-23 19:34] LABS: SYNOVIAL FLUID APPEARANCE HAZY; SYNOVIAL FLUID COLOR AMBER; SYNOVIAL FLUID MONONUC RELAT 6.1 %; SYNOVIAL FLUID POLYNUC RELAT 93.9 %
--- NOTE | 2017-07-08 08:20 | CODING QUERY NO DIAGNOSIS ---
TREATMENT RENDERED WITHOUT A DIAGNOSIS 65 To promote full compliance with coding requirements relating to patient care, physician participation is requested in all cases of washroom cleaner uncertainty. Please assist us with providing a diagnosis/symptom for the test(s) below: A diagnosis/symptom was not documented on your Order. A valid diagnosis/symptom is required to bill all insurances. Please remember that we are unable to code a diagnosis of rule out, probable, possible, questionable, or suspected. DOS 05/23/17 Tests that require a diagnosis: * SYNOVIAL FLUID DIAGNOSIS: * AERO/ANAE CULTURE DIAGNOSIS: Provider Signature: Date: Thank you Ashley Duckworth Health Information Management Once completed, please kindly fax back to [phone] For questions please call [phone]
== END | disposition home or self-care (01) ==
LOC: C.LABSPEC 16:30
PROVIDERS: ATTEND Orthopaedic Surgery Sports Medicine
DX: M25.461 Effusion, right knee (principal)